=== PATIENT | female | born 1995 | race Caucasian/White ===

== ENCOUNTER 2018-02-10 19:01 | Emergency (ER) | payer OTHER ==
--- NOTE | 2018-02-10 20:10 | RAD REPORT ---
EXAM DESCRIPTION: RAD - Foot Left 3 View - 02/10/2018 7:48 pm CLINICAL HISTORY: Left foot pain COMPARISON: April 2017 FINDINGS: No fracture, dislocation or periosteal reaction. No acute or destructive bony process. No acute bone or joint process. No air or foreign body in the soft tissues. IMPRESSION: Negative left foot examination.
--- NOTE | 2018-02-10 20:15 | EDPHYS ---
Physician Documentation [facility] Name: Marycarmen Koch Age: 22 yrs Sex: Female : 1995 Arrival Date: 02/10/2018 Time: 19:05 Bed 11 Private MD: ED Physician Carlos Lyn HPI: 02/10 19:49 This 22 yrs old Female presents to ER via Ambulatory with complaints of Foot snw Injury. 19:49 The patient presents with a contusion, decreased range of motion, an injury, swelling, snw tenderness. The complaints affect the left fifth toe. Context: The problem was sustained at home, resulted from a crush injury, S.O. stepped on her toe. Onset: The symptoms/episode began/occurred suddenly, this morning. Associated signs and symptoms: The patient has no apparent associated signs or symptoms. Severity of symptoms: At their worst the symptoms were very mild. The patient has not experienced similar symptoms in the past. 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 - Social history:: Smoking status: Patient/guardian denies using tobacco. ROS: 19:48 Constitutional: Negative for fever, chills, and weight loss, Eyes: Negative for injury, snw pain, redness, and discharge, ENT: Negative for injury, pain, and discharge, Neck: Negative for injury, pain, and swelling, Cardiovascular: Negative for chest pain, palpitations, and edema, Respiratory: Negative for shortness of breath, cough, wheezing, and pleuritic chest pain, Abdomen/GI: Negative for abdominal pain, nausea, vomiting, diarrhea, and constipation, Back: Negative for injury and pain, : Negative for injury, bleeding, discharge, and swelling, Skin: Negative for injury, rash, and discoloration, Neuro: Negative for headache, weakness, numbness, tingling, and seizure, Psych: Negative for depression, anxiety, suicide ideation, homicidal ideation, and hallucinations. 19:48 MS/extremity: Positive for ecchymosis, swelling, tenderness, of the left fifth toe. Exam: 19:48 Constitutional: This is a well developed, well nourished patient who is awake, alert, snw and in no acute distress. Head/Face: Normocephalic, atraumatic. Eyes: Pupils equal round and reactive to light, extra-ocular motions intact. Lids and lashes normal. Conjunctiva and sclera are non-icteric and not injected. Cornea within normal limits. Periorbital areas with no swelling, redness, or edema. ENT: Nares patent. No nasal discharge, no septal abnormalities noted. Tympanic membranes are normal and external auditory canals are clear. Oropharynx with no redness, swelling, or masses, exudates, or evidence of obstruction, uvula midline. Mucous membranes moist. Neck: Trachea midline, no thyromegaly or masses palpated, and no cervical lymphadenopathy. Supple, full range of motion without nuchal rigidity, or vertebral point tenderness. No Meningismus. Chest/axilla: Normal chest wall appearance and motion. Nontender with no deformity. No lesions are appreciated. Cardiovascular: Regular rate and rhythm with a normal S1 and S2. No gallops, murmurs, or rubs. Normal PMI, no JVD. No pulse deficits. Respiratory: Lungs have equal breath sounds bilaterally, clear to auscultation and percussion. No rales, rhonchi or wheezes noted. No increased work of breathing, no retractions or nasal flaring. Abdomen/GI: Soft, non-tender, with normal bowel sounds. No distension or tympany. No guarding or rebound. No evidence of tenderness throughout. Back: No spinal tenderness. No costovertebral tenderness. Full range of motion. Skin: Warm, dry with normal turgor. Normal color with no rashes, no lesions, and no evidence of cellulitis. MS/ Extremity: Pulses equal, no cyanosis. Neurovascular intact. Full, normal range of motion. left pinkie toe with ecchymosis and mild edema, +tenderness Neuro: Awake and alert, GCS 15, oriented to person, place, time, and situation. Cranial nerves II-XII grossly intact. Motor strength 5/5 in all extremities. Sensory grossly intact. Cerebellar exam normal. Normal gait. Vital Signs: 19:07 BP 125 / 82; Pulse 85; Resp 19; Temp 97.3; Pulse Ox 100% on R/A; Weight 58.97 kg; la1 Height 5 ft. 2 in. (157.48 cm); 19:07 Body Mass Index 23.78 (58.97 kg, 157.48 cm) la1 MDM: 19:23 Patient medically screened. snw 02/11 00:39 Data reviewed: vital signs, nurses notes. Data interpreted: Pulse oximetry: on room air snw is 100 %. Interpretation: normal. Counseling: I had a detailed discussion with the patient and/or guardian regarding: the historical points, exam findings, and any diagnostic results supporting the discharge/admit diagnosis, radiology results, the need for outpatient follow up, to return to the emergency department if symptoms worsen or persist or if there are any questions or concerns that arise at home. Special discussion: Based on the history and exam findings, there is no indication for further emergent testing or inpatient evaluation. I discussed with the patient/guardian the need to see the primary care provider for further evaluation of the symptoms. 02/10 19:10 Order name: Foot Left 3 View XRAY; Complete Time: 20:11 snw 02/10 20:15 Order name: Mis. Order: kristen-tape 4th-5th digit,; Complete Time: 20:20 snw 02/10 20:15 Order name: Post-op shoe; Complete Time: 20:20 snw Administered Medications: No medications were administered Disposition: 02/10 21:17 Co-signature as Attending Physician, Carlos Lyn MD. rn Disposition: 02/10/18 20:15 Discharged to Home. Impression: Contusion of left foot. - Condition is Stable. - Discharge Instructions: Contusion, Cast or Splint Care. - Prescriptions for Motrin IB 200 mg Oral Tablet - take 1 tablet by ORAL route every 6 hours As needed as needed with food; 40 tablet. - Medication Reconciliation Form, Thank You Letter, Antibiotic Education, Prescription Opioid Use form. - Follow up: Private Physician; When: 1 - 2 days; Reason: Recheck today's complaints, Continuance of care, Re-evaluation by your physician. Follow up: Emergency Department; When: As needed; Reason: Worsening of condition. Signatures: Dispatcher [employer] EDMS Carolyn Granger, REGLA-C FISH FILLETER-Csnw Carlos Lyn MD MD rn Attema, Lee, RN RN la1
--- NOTE | 2018-02-10 20:15 | ER ---
Nurse's Notes [facility] Name: Marycarmen Koch Age: 22 yrs Sex: Female : 1995 Arrival Date: 02/10/2018 Time: 19:05 Bed 11 Private MD: Diagnosis: Contusion of left foot Presentation: 02/10 19:06 Presenting complaint: Patient states: My fiance stepped on me left pinky toe and I la1 think I broke it. Transition of care: patient was not received from another setting of care. Onset of symptoms was February 10, 2018. Initial Sepsis Screen: Does the patient meet any 2 criteria? No. Patient's initial sepsis screen is negative. Does the patient have a suspected source of infection? No. Patient's initial sepsis screen is negative. Care prior to arrival: None. 19:06 Method Of Arrival: Ambulatory la1 19:06 Acuity: ESDRAS 4 la1 Triage Assessment: 19:11 General: Appears in no apparent distress. Behavior is calm, cooperative. Injury la1 Description: Crush injury sustained to Left fifth toenail and left fifth toe. 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 - Social history:: Smoking status: Patient/guardian denies using tobacco. Screenin:10 Abuse screen: Denies threats or abuse. Nutritional screening: No deficits noted. la1 Tuberculosis screening: No symptoms or risk factors identified. Fall Risk None identified. Assessment: 19:10 General: Appears in no apparent distress. Behavior is calm, cooperative. Pain: la1 Complains of pain in left fifth toe and Left fifth toenail. Neuro: Level of Consciousness is awake, alert, obeys commands, Oriented to person, place, time, situation. Cardiovascular: Patient's skin is warm and dry. Musculoskeletal: Circulation, motion, and sensation intact. Capillary refill < 3 seconds, is brisk, in bilateral toes. Vital Signs: 19:07 BP 125 / 82; Pulse 85; Resp 19; Temp 97.3; Pulse Ox 100% on R/A; Weight 58.97 kg; la1 Height 5 ft. 2 in. (157.48 cm); 19:07 Body Mass Index 23.78 (58.97 kg, 157.48 cm) la1 ED Course: 19:05 Patient arrived in ED. mr 19:07 Triage completed. la1 19:08 Arm band placed on left wrist. la1 19:10 Jean Resendiz, RN is Primary Nurse. la1 19:10 Carolyn Granger FNP-C is PHCP. snw 19:10 Carlos Lyn MD is Attending Physician. snw 19:10 Call light in reach. la1 19:10 No provider procedures requiring assistance completed. Patient did not have IV access la1 during this emergency room visit. 19:46 X-ray completed. Portable x-ray completed in exam room. Patient tolerated procedure kp1 well. 19:47 Foot Left 3 View XRAY In Process Unspecified. EDMS Administered Medications: No medications were administered Outcome: 20:15 Discharge ordered by . snw 20:20 Discharged to home ambulatory. la1 20:20 Condition: stable 20:20 Discharge instructions given to patient, Instructed on discharge instructions, follow up and referral plans. Demonstrated understanding of instructions, follow-up care, medications, Prescriptions given X 1. 20:20 Patient left the ED. la1 Signatures: Dispatcher [employer] EDMS Carolyn Granger FNP-C SORTING COWS WORKER-Sigrid Mcmillan mr Jean Resendiz RN RN la1 NicholsZakiya kp1
[2018-02-10 20:36] VITALS: BP 125/82; TEMP 97.3; O2SAT 100
== END 2018-02-10 20:20 | disposition home or self-care (01) ==
LOC: ER 19:01
DX: S90.32XA Contusion of left foot, initial encounter (principal); X58.XXXA Exposure to other specified factors, initial encounter; Y93.9 Activity, unspecified; Y92.009 Unspecified place in unspecified non-institutional (private) residence as the place of occurrence of the external cause
CPT/HCPCS: 99283

== ENCOUNTER 2018-02-11 12:08 | Emergency (ER) | payer OTHER ==
--- NOTE | 2018-02-11 13:39 | EDPHYS ---
Physician Documentation [facility] Name: Marycarmen Koch Age: 22 yrs Sex: Female : 1995 Arrival Date: 02/11/2018 Time: 12:09 Bed 27 Private MD: ED Physician Gregg Altman HPI: 02/11 13:33 This 22 yrs old Female presents to ER via Ambulatory with complaints of Seen jr8 Yesterday, Needs boot for L Foot. 13:33 The complaints affect the left foot. Onset: The symptoms/episode began/occurred jr8 acutely, yesterday. The patient has not experienced similar symptoms in the past. The patient has been recently seen by a physician:. Patient seen yesterday for left foot pain/contusion and possible fracture. Was discharged to f/u. Unable to ambulate on foot with regular shoe. Requesting boot so she can work. 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 - Social history:: Smoking status: Patient/guardian denies using tobacco. ROS: 13:33 Eyes: Negative for injury, pain, redness, and discharge, ENT: Negative for injury, jr8 pain, and discharge, Neck: Negative for injury, pain, and swelling, Cardiovascular: Negative for chest pain, palpitations, and edema, Respiratory: Negative for shortness of breath, cough, wheezing, and pleuritic chest pain, Abdomen/GI: Negative for abdominal pain, nausea, vomiting, diarrhea, and constipation, Back: Negative for injury and pain, Skin: Negative for injury, rash, and discoloration, Neuro: Negative for headache, weakness, numbness, tingling, and seizure. 13:33 MS/extremity: Positive for contusion, ecchymosis, pain, tenderness, of the left foot. Exam: 13:33 Cardiovascular: Regular rate and rhythm with a normal S1 and S2. No gallops, murmurs, jr8 or rubs. Normal PMI, no JVD. No pulse deficits. Respiratory: Lungs have equal breath sounds bilaterally, clear to auscultation and percussion. No rales, rhonchi or wheezes noted. No increased work of breathing, no retractions or nasal flaring. Skin: Warm, dry with normal turgor. Normal color with no rashes, no lesions, and no evidence of cellulitis. Neuro: Awake and alert, GCS 15, oriented to person, place, time, and situation. Cranial nerves II-XII grossly intact. Motor strength 5/5 in all extremities. Sensory grossly intact. Cerebellar exam normal. Normal gait. 13:33 Musculoskeletal/extremity: Extremities: grossly normal except: noted in the left foot: Pain, tenderness, contusion noted to right fifth toe , ROM: intact in all extremities, limited active range of motion due to pain, limited passive range of motion due to pain, Circulation is intact in all extremities. Sensation intact. Weight bearing: can bear weight with assistance only. Vital Signs: 12:28 BP 97 / 69; Pulse 72; Resp 15; Temp 98; Pulse Ox 98% on R/A; Weight 58.97 kg (R); hb Height 5 ft. 2 in. (157.48 cm); Pain 7/10; 12:28 Body Mass Index 23.78 (58.97 kg, 157.48 cm) hb Procedures: 13:33 Splinting: Splint applied to left foot using Ortho 3D boot, applied by nurse. Examined jr8 by me, post splint application: neurovascular intact, 2+ distal pulses palpable, brisk capillary refill noted, Patient tolerated well. MDM: 13:01 Patient medically screened. jr8 13:33 Data reviewed: vital signs, nurses notes, and as a result, I will discharge patient. jr8 Data interpreted: Pulse oximetry: on room air is 98 %. Interpretation: normal. Counseling: I had a detailed discussion with the patient and/or guardian regarding: the historical points, exam findings, and any diagnostic results supporting the discharge/admit diagnosis, the need for outpatient follow up, a dicer operator, to return to the emergency department if symptoms worsen or persist or if there are any questions or concerns that arise at home. Administered Medications: No medications were administered Disposition: 02/11/18 13:39 Discharged to Home. Impression: Contusion of left foot. - Condition is Stable. - Discharge Instructions: Foot Contusion. - Medication Reconciliation Form, Thank You Letter, Antibiotic Education, Prescription Opioid Use form. - Follow up: Private Physician; When: 2 - 3 days; Reason: Recheck today's complaints, Continuance of care, Re-evaluation by your physician. - Problem is new. - Symptoms have improved. Addendum: 02/14/2018 21:09 Co-signature as Attending Physician, Gregg Altman MD. g s Signatures: Samuel Tate PA PA jr8 Ximena Emanuel RN RN Gregg Altman MD MD Elis Gonsales RN RN tl3 Corrections: (The following items were deleted from the chart) 02/11 13:47 13:39 02/11/2018 13:39 Discharged to Home. Impression: Contusion of left foot. tl3 Condition is Stable. Forms are Medication Reconciliation Form, Thank You Letter, Antibiotic Education, Prescription Opioid Use. Follow up: Private Physician; When: 2 - 3 days; Reason: Recheck today's complaints, Continuance of care, Re-evaluation by your physician. Problem is new. Symptoms have improved. jr8
--- NOTE | 2018-02-11 13:39 | ER ---
Nurse's Notes [facility] Name: Marycarmen Koch Age: 22 yrs Sex: Female : 1995 Arrival Date: 02/11/2018 Time: 12:09 Bed 27 Private MD: Diagnosis: Contusion of left foot Presentation: 02/11 12:24 Presenting complaint: Patient states: Seen yesterday for left foot injury, was unable hb to put on shoe due to pain today due to the pain, is concerned she needs walking boot. Transition of care: patient was not received from another setting of care. Onset of symptoms was February 10, 2018. Initial Sepsis Screen: Does the patient meet any 2 criteria? No. Patient's initial sepsis screen is negative. Does the patient have a suspected source of infection? No. Patient's initial sepsis screen is negative. Care prior to arrival: None. 12:24 Method Of Arrival: Ambulatory 12:24 Acuity: ESDRAS 4 hb SHIFT BOSS: 12:28 LMP 02/10/2018 hb Historical: - Allergies: 12:29 No Known Allergies; hb - Home Meds: 12:29 None [Active]; hb - PMHx: 12:29 None; hb - PSHx: 12:29 Tubal ligation; hb - Immunization history:: Adult Immunizations up to date. - Social history:: Smoking status: Patient/guardian denies using tobacco. Screenin:13 Abuse screen: Denies threats or abuse. Nutritional screening: No deficits noted. tl3 Tuberculosis screening: No symptoms or risk factors identified. Fall Risk None identified. Assessment: 13:13 General: Appears in no apparent distress. comfortable, slender, well groomed, well tl3 developed, well nourished, Behavior is calm, cooperative, appropriate for age. Pain: Complains of pain in left foot. Neuro: No deficits noted. Level of Consciousness is awake, alert, obeys commands, Oriented to person, place, time, situation, Appropriate for age. Cardiovascular: No deficits noted. Heart tones S1 S2 present Capillary refill in bilateral toes. Respiratory: No deficits noted. Airway is patent Trachea midline Respiratory effort is even, unlabored, Respiratory pattern is regular, symmetrical, Breath sounds are clear bilaterally. GI: No signs and/or symptoms were reported involving the gastrointestinal system. : No signs and/or symptoms were reported regarding the genitourinary system. EENT: No signs and/or symptoms were reported regarding the EENT system. Derm: No signs and/or symptoms reported regarding the dermatologic system. Musculoskeletal: Reports pt was seen yesterday and dx with a contusion, work will not let her return without a hard shoe and she says it is too painful to even put a fuzzy slipper on and would like a walking boot. Vital Signs: 12:28 BP 97 / 69; Pulse 72; Resp 15; Temp 98; Pulse Ox 98% on R/A; Weight 58.97 kg (R); hb Height 5 ft. 2 in. (157.48 cm); Pain 7/10; 12:28 Body Mass Index 23.78 (58.97 kg, 157.48 cm) hb ED Course: 12:09 Patient arrived in ED. as 12:28 Triage completed. hb 12:28 Arm band placed on left wrist. 13:01 [facility]. 8 13:01 Gregg Altman MD is Attending Physician. 8 13:13 Elis Gonsales, RN is Primary Nurse. tl3 13:13 No apparent distress. Resting quietly. Awaiting ED provider evaluation. tl3 13:13 Patient has correct armband on for positive identification. Bed in low position. Call tl3 light in reach. 13:13 No provider procedures requiring assistance completed. Patient did not have IV access tl3 during this emergency room visit. 13:45 walking boot. tl3 Administered Medications: No medications were administered Outcome: 13:39 Discharge ordered by . 8 13:45 Discharged to home ambulatory. tl3 13:45 Condition: good 13:45 Discharge instructions given to patient, Instructed on discharge instructions, Demonstrated understanding of instructions, follow-up care. 13:47 Patient left the ED. tl3 Signatures: Lavonne Gan as Samuel Tate PA PA 8 Ximena Emanuel RN RN Elis Gonsales RN RN tl3
[2018-02-11 13:51] VITALS: BP 97/69; TEMP 98; O2SAT 98
== END 2018-02-11 13:47 | disposition home or self-care (01) ==
LOC: ER 12:08
DX: S90.32XA Contusion of left foot, initial encounter (principal); X58.XXXA Exposure to other specified factors, initial encounter
CPT/HCPCS: 99283

== ENCOUNTER 2019-11-27 21:22 | Emergency (ER) | payer OTHER ==
[2019-11-27 22:24] LABS: Absolute Lymphocytes (CBC) 3.2 K/uL (0.7-4.9); Basophils % 0.8 % (0-1.3); Hematocrit 38.5 % (36.0-45.0); Lymphocytes % 33.1 % (15.3-44.8); MPV 7.7 fL (7.6-11.3); RBC Red Blood Cell Count 4.11 M/uL (3.86-4.86)
[2019-11-27 22:52] LABS: BUN Blood Urea Nitrogen 12 mg/dL (7-18); Bicarbonate 27 mmol/L (21-32); Glucose Level 85 mg/dL (74-106); Potassium 3.7 mmol/L (3.5-5.1); Sodium Level 140 mmol/L (136-145)
[2019-11-27 22:54] LABS: Troponin (Emerg Dept Use Only) < 0.02 ng/mL (0.0-0.045)
--- NOTE | 2019-11-27 23:19 | ER ---
Nurse's Notes [facility] Name: Marycarmen Koch Age: 23 yrs Sex: Female : 1995 Arrival Date: 11/27/2019 Time: 21:25 Bed 27 Private MD: Diagnosis: Chest pain, unspecified Presentation: 11/27 21:34 Presenting complaint: Patient states: Chest pain started at 1700 today, radiating to ca1 the L jaw, arm and shoulder. Worst with coughing. Reports cough and congestion for 2-3 days. Denies fever. Transition of care: patient was not received from another setting of care. Onset of symptoms was November 27, 2019. Risk Assessment: Do you want to hurt yourself or someone else? Patient reports no desire to harm self or others. Initial Sepsis Screen: Does the patient meet any 2 criteria? No. Patient's initial sepsis screen is negative. Does the patient have a suspected source of infection? No. Patient's initial sepsis screen is negative. Care prior to arrival: None. 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 - Coronavirus screen:: The patient has NOT traveled to [place] in the past 14 days. The patient has NOT had contact with known/suspected case of Coronavirus?. - Social history:: Smoking status: Patient denies any tobacco usage or history of. - Family history:: not pertinent. - Ebola Screening: : Patient negative for fever greater than or equal to 101.5 degrees Fahrenheit, and additional compatible Ebola Virus Disease symptoms Patient denies exposure to infectious person Patient denies travel to an Ebola-affected area in the 21 days before illness onset No symptoms or risks identified at this time. - Hospitalizations: : No recent hospitalization is reported. Screenin:42 Abuse screen: Denies threats or abuse. Nutritional screening: No deficits noted. fu Tuberculosis screening: No symptoms or risk factors identified. Fall Risk None identified. Assessment: 21:39 General: Appears in no apparent distress. Behavior is calm, cooperative, appropriate fu for age, Denies fever, feeling ill, fatigue, chills. Pain: Complains of pain in chest pain Pain radiates to left jaw Pain currently is 6 out of 10 on a pain scale. Quality of pain is described as sharp, Pain began 1700 today. Neuro: Level of Consciousness is awake, alert, obeys commands, Oriented to person, place, time, situation, Orthodontic Treatment Coordinator are equal bilaterally Moves all extremities. Cardiovascular: Reports chest pain, shortness of breath, since 1700 this afternoon Denies diaphoresis, lightheadedness, nausea, palpitations, Heart tones S1 S2 Capillary refill < 3 seconds. Respiratory: Reports shortness of breath since 2-3 days ago cough that is Airway is patent Breath sounds are clear bilaterally. EENT: No signs and/or symptoms were reported regarding the EENT system. Derm: No signs and/or symptoms reported regarding the dermatologic system. 23:05 Reassessment: No changes from previously documented assessment. Patient and/or family fu updated on plan of care and expected duration. Pain level reassessed. Patient is alert, oriented x 3, equal unlabored respirations, skin warm/dry/pink. patient resting in bed, no complaints at this time. 23:15 Reassessment: Patient and/or family updated on plan of care and expected duration. Pain fu level reassessed. Patient is alert, oriented x 3, equal unlabored respirations, skin warm/dry/[facility]. Vital Signs: 21:36 BP 126 / 93; Pulse 109; Resp 20; Temp 98.5(O); Pulse Ox 100% on R/A; Weight 75.75 kg ca1 (R); Height 5 ft. 2 in. (157.48 cm) (R); Pain 6/10; 22:04 BP 106 / 72; Pulse 93; Resp 17; Pulse Ox 100% on R/A; Pain 0/10; fu 23:15 BP 117 / 79; Pulse 108; Resp 22; Temp 98.2; Pulse Ox 100% on R/A; Pain 0/10; fu 21:36 Body Mass Index 30.54 (75.75 kg, 157.48 cm) ca1 ED Course: 21:25 Patient arrived in ED. ag3 21:29 Cale Guzman, RN is Primary Nurse. fu 21:35 Triage completed. ca1 21:36 Arm band placed on right wrist. ca1 21:38 Carlos Lyn MD is Attending Physician. rn 21:40 environmental monitoring technician on. Pulse ox on. NIBP on. fu 21:42 Patient maintains SpO2 saturation greater than 95% on room air. fu 22:00 Inserted saline lock: 22 gauge in left antecubital area, using aseptic technique. Blood fu collected. 22:09 Troponin (emerg Dept Use Only) Sent. fu 22:09 Basic Metabolic Panel Sent. fu 22:09 CBC with Diff Sent. fu 23:33 Patient has correct armband on for positive identification. Placed in gown. Bed in low fu position. Call light in reach. 23:33 No provider procedures requiring assistance completed. IV discontinued, bleeding fu controlled, Pressure dressing applied. Administered Medications: No medications were administered Point of Care Testing: Urine : 22:54 hCG Reading: Negative; Control Reading: Positive; fu Outcome: 23:18 Discharge ordered by . rn 23:33 Discharged to home ambulatory. fu 23:33 Condition: stable 23:33 Discharge instructions given to patient, Instructed on discharge instructions, follow up and referral plans. Demonstrated understanding of instructions, follow-up care. 23:40 Patient left the ED. fu Signatures: Carlos Lyn MD MD rn Umadhay, Felix, RN RN Joana Yanez ag3 Lesli Fry RN RN ca1 Corrections: (The following items were deleted from the chart) 21:41 21:36 EKG completed in triage. Results shown to MD. ca1 ca1
--- NOTE | 2019-11-27 23:20 | EDPHYS ---
Physician Documentation [facility] Name: Marycarmen Koch Age: 23 yrs Sex: Female : 1995 Arrival Date: 11/27/2019 Time: 21:25 Bed 27 Private MD: ED Physician Carlos Lyn HPI: 11/27 22:00 This 23 yrs old Female presents to ER via Ambulatory with complaints of Chest rn Pain. 22:00 The patient or guardian reports chest pain that is located primarily in the anterior rn chest wall. The pain radiates to the left shoulder, The chest pain is described as sharp, stabbing. Duration: The patient or guardian reports multiple episodes, that are intermittent. Modifying factors: The symptoms are alleviated by nothing. the symptoms are aggravated by cough, deep breath, palpation of area. Severity of pain: At its worst the pain was mild in the emergency department the pain is unchanged. The patient has not experienced similar symptoms in the past. Reports cough for 3 days, non-productive, no hemoptysis, today began with sharp stabbing left sided chest pain worse with palpation and deep breath. No trauma, no hx of dvt/PE, no recent surgery or immobilization. No famhx of early cardiac problems. . 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 - Coronavirus screen:: The patient has NOT traveled to [place] in the past 14 days. The patient has NOT had contact with known/suspected case of Coronavirus?. - Social history:: Smoking status: Patient denies any tobacco usage or history of. - Family history:: not pertinent. - Ebola Screening: : Patient negative for fever greater than or equal to 101.5 degrees Fahrenheit, and additional compatible Ebola Virus Disease symptoms Patient denies exposure to infectious person Patient denies travel to an Ebola-affected area in the 21 days before illness onset No symptoms or risks identified at this time. - Hospitalizations: : No recent hospitalization is reported. ROS: 22:00 Constitutional: Negative for fever, chills, and weight loss, Eyes: Negative for injury, rn pain, redness, and discharge, Neck: Negative for injury, pain, and swelling, Cardiovascular: Negative for palpitations, and edema, Respiratory: Negative for wheezing Abdomen/GI: Negative for abdominal pain, nausea, vomiting, diarrhea, and constipation, MS/Extremity: Negative for injury and deformity, Skin: Negative for injury, rash, and discoloration, Neuro: Negative for headache, weakness, numbness, tingling, and seizure. Exam: 22:00 Constitutional: This is a well developed, well nourished patient who is awake, alert, rn and in no acute distress. Head/Face: Normocephalic, atraumatic. ENT: MMM Chest/axilla: + left anterior chest wall reproducible tenderness Cardiovascular: Regular rate and rhythm. No pulse deficits. Respiratory: Lungs have equal breath sounds bilaterally, clear to auscultation. No increased work of breathing, no retractions or nasal flaring. Abdomen/GI: soft, non-tender MS/ Extremity: Pulses equal, no cyanosis. Neurovascular intact. Full, normal range of motion. Equal circumference. Neuro: Awake and alert, GCS 15 22:30 ECG was reviewed by the Attending Physician. rn Vital Signs: 21:36 BP 126 / 93; Pulse 109; Resp 20; Temp 98.5(O); Pulse Ox 100% on R/A; Weight 75.75 kg ca1 (R); Height 5 ft. 2 in. (157.48 cm) (R); Pain 6/10; 22:04 BP 106 / 72; Pulse 93; Resp 17; Pulse Ox 100% on R/A; Pain 0/10; fu 23:15 BP 117 / 79; Pulse 108; Resp 22; Temp 98.2; Pulse Ox 100% on R/A; Pain 0/10; fu 21:36 Body Mass Index 30.54 (75.75 kg, 157.48 cm) ca1 MDM: 21:38 Patient medically screened. rn 23:16 Differential diagnosis: acute pericarditis, chest wall pain, costochondritis, pleurisy, rn pneumothorax, bronchitis. Data reviewed: vital signs, nurses notes, lab test result(s), EKG, radiologic studies, plain films, and as a result, I will discharge patient. Counseling: I had a detailed discussion with the patient and/or guardian regarding: the historical points, exam findings, and any diagnostic results supporting the discharge/admit diagnosis, lab results, radiology results, the need for outpatient follow up, to return to the emergency department if symptoms worsen or persist or if there are any questions or concerns that arise at home. Response to treatment: the patient's symptoms have mildly improved after treatment, and as a result, I will discharge patient. Special discussion: Based on the patient's history, exam, and Dx evaluation, there is no indication for emergent intervention or inpatient Tx. It is understood by the patient/guardian that if the Sx's persist or worsen they need to return immediately for re-evaluation. I discussed with the patient/guardian in detail that at this point there is no indication for admission to the hospital. It is understood, however, that if the symptoms persist or worsen the patient needs to return immediately for re-evaluation. ED course: Trop and ecg normal, neg cxr, most likely pleurisy from cough and chest wall strain also from cough. Reassured patient, will dc home.. 11/27 21:45 Order name: CBC with Diff rn 11/27 21:45 Order name: Basic Metabolic Panel 11/27 21:45 Order name: Troponin (emerg Dept Use Only) rn 11/27 22:42 Order name: CBC with Automated Diff; Complete Time: 23:07 EDVA 11/27 22:53 Order name: Basic Metabolic Panel; Complete Time: 23:07 EDVA 11/27 22:55 Order name: Troponin (Emerg Dept Use Only); Complete Time: 23:07 EDVA 11/27 21:37 Order name: EKG; Complete Time: 21:37 ca1 11/27 21:37 Order name: EKG - Nurse/Tech; Complete Time: 21:37 ca1 11/27 21:45 Order name: XRAY Chest (1 view) rn 11/27 21:45 Order name: Urine Test (obtain specimen); Complete Time: 22:47 rn 11/27 21:45 Order name: IV Start; Complete Time: 22:09 rn EC:30 Rate is 89 beats/min. Rhythm is regular. QRS [place] is Normal. [place] interval is normal. QRS rn interval is normal. QT interval is normal. No Q waves. T waves are Normal. No ST changes noted. Clinical impression: Normal ECG. Interpreted by me. Reviewed by me. Administered Medications: No medications were administered Point of Care Testing: Urine : 22:54 hCG Reading: Negative; Control Reading: Positive; fu Disposition: 11/27/19 23:18 Discharged to Home. Impression: Chest pain, unspecified. - Condition is Stable. - Discharge Instructions: Nonspecific Chest Pain, Pleurisy. - Medication Reconciliation Form, Thank You Letter, Antibiotic Education, Prescription Opioid Use form. - Follow up: Private Physician; When: As needed; Reason: Recheck today's complaints, Re-evaluation by your physician. - Problem is new. - Symptoms have improved. Signatures: Dispatcher [employer] EDMS Carlos Lyn MD MD rn Umadhay, Felix, RN RN fu Acob, Cheryl, RN RN ca1 Corrections: (The following items were deleted from the chart) 23:40 23:18 11/27/2019 23:18 Discharged to Home. Impression: Chest pain, unspecified. fu Condition is Stable. Forms are Medication Reconciliation Form, Thank You Letter, Antibiotic Education, Prescription Opioid Use. Follow up: Private Physician; When: As needed; Reason: Recheck today's complaints, Re-evaluation by your physician. Problem is new. Symptoms have improved. rn
--- NOTE | 2019-11-28 07:52 | RAD REPORT ---
EXAM DESCRIPTION: RAD - Chest Single View - 11/27/2019 10:00 pm CLINICAL HISTORY: Chest pain;Cough;Dyspnea COMPARISON: No comparisons TECHNIQUE: AP portable chest image was obtained 11/27/2019 10:00 pm . FINDINGS: Lungs are clear. Heart and vasculature are normal. No measurable pleural effusion and no p neumothorax. No acute bony abnormality seen. No acute aortic findings suspected. IMPRESSION: No acute cardiopulmonary process.
--- NOTE | 2019-11-28 13:36 | EKG ---
Test Date: 2019-11-27 Test Time: 21:53:41 Color Maker Formulator: BETTY MEASUREMENT RESULTS: Intervals: Rate: 89 MT: 140 QRSD: 72 QT: 354 QTc: 430 [place]: P: 68 MT: 140 QRS: 68 T: 48 INTERPRETIVE STATEMENTS: Normal sinus rhythm Normal ECG No previous ECG available for comparison Electronically Signed On 11-28-19 13:35:13 BASE LOADER by Twin Correa
[2019-11-28 16:20] VITALS: O2SAT 100
[2019-11-28 16:23] VITALS: BP 117/79; TEMP 98.2
== END 2019-11-27 23:40 | disposition home or self-care (01) ==
LOC: ER 21:22
DX: R07.9 Chest pain, unspecified (principal)
CPT/HCPCS: 36415; 71045; 80048; 84484; 85025; 93005; 99285

== ENCOUNTER 2021-07-07 20:08 | Emergency (ER) | payer OTHER, SELFPAY ==
[2021-07-07 21:42] LABS: SARS-COV-2 RT PCR NEGATIVE (NEGATIVE)
--- NOTE | 2021-07-07 22:15 | ER ---
Nurse's Notes [facility] Name: Marycarmen Koch Age: 25 yrs Sex: Female : 1995 Arrival Date: 07/07/2021 Time: 20:09 Bed DX2 Private MD: Diagnosis: Acute upper respiratory infection, unspecified Presentation: 07/07 20:44 Chief complaint: Patient states: Sore throat, cough, fever, vomiting, Left ear pain x 3 kg days. Coronavirus screen: Vaccine status: Patient reports being unvaccinated. cough unrelated to allergies, fever, headache, sore throat, Client presents with at least one sign or symptom that may indicate coronavirus-19. Standard/surgical mask placed on the client. Provider contacted for isolation considerations. Ebola Screen: Patient negative for fever greater than or equal to 101.5 degrees Fahrenheit, and additional compatible Ebola Virus Disease symptoms Patient denies exposure to infectious person. Patient denies travel to an Ebola-affected area in the 21 days before illness onset. Initial Sepsis Screen: Does the patient meet any 2 criteria? No. Patient's initial sepsis screen is negative. Does the patient have a suspected source of infection? No. Patient's initial sepsis screen is negative. Risk Assessment: Do you want to hurt yourself or someone else? Patient reports no desire to harm self or others. 20:44 Method Of Arrival: Ambulatory kg 20:44 Onset of symptoms was July 04, 2021. kg 20:44 Acuity: ESDRAS 4 kg Triage Assessment: 20:46 General: Appears in no apparent distress. Behavior is calm, cooperative, appropriate kg for age, quiet. Pain: Complains of pain in Throat. EENT: Reports difficulty swallowing since 07/04 pain Left ear pain. 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 - Immunization history:: Adult Immunizations not up to date, Client reports having NOT received the Covid vaccine. Screenin:47 Abuse screen: Denies threats or abuse. Denies injuries from another. Nutritional kg screening: No deficits noted. Tuberculosis screening: No symptoms or risk factors identified. Fall Risk None identified. Assessment: 21:37 General: Appears in no apparent distress. Pain: Denies pain. Neuro: No deficits noted. ch4 Cardiovascular: No deficits noted. Respiratory: Airway is patent Respiratory effort is unlabored, Breath sounds are clear. GI: No deficits noted. EENT: Throat. Vital Signs: 20:44 BP 121 / 96; Pulse 97; Resp 20; Temp 97.2(TE); Pulse Ox 100% ; Weight 68.04 kg; Height kg 5 ft. 2 in. (157.48 cm) (R); Pain 6/10; 20:44 Body Mass Index 27.44 (68.04 kg, 157.48 cm) kg ED Course: 20:09 Patient arrived in ED. bp1 20:46 Triage completed. kg 21:30 Flu Sent. ch4 21:30 Strep Sent. ch4 21:33 Melchor Murray PA is PHCP. cp 21:33 Colby Davidson MD is Attending Physician. cp 21:37 Arielle Cheema, RN is Primary Nurse. ch4 21:37 Patient has correct armband on for positive identification. Placed in gown. Bed in low ch4 position. Call light in reach. 21:51 COVID-19 : Document "Date of Symptom Onset" if Symptomatic. Sent. kc4 Administered Medications: No medications were administered Outcome: 22:15 Discharge ordered by . cp 22:29 Patient left the ED. ch4 Signatures: Melchor Murray PA PA cp Marley Kulkarni [facility] Emma Patino RN RN kg Arielle Cheema, KARTHIKEYAN RN [facility] Lorenza Reeves kc4
--- NOTE | 2021-07-07 22:15 | EDPHYS ---
Physician Documentation [facility] Name: Marycarmen Koch Age: 25 yrs Sex: Female : 1995 Arrival Date: 07/07/2021 Time: 20:09 Bed DX2 Private MD: ED Physician Colby Davidson HPI: 07/07 21:30 This 25 yrs old Female presents to ER via Ambulatory with complaints of Sore cp Throat, Fever, Cough. 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 - Immunization history:: Adult Immunizations not up to date, Client reports having NOT received the Covid vaccine. ROS: 21:35 Constitutional: Negative for body aches, chills, fever, poor PO intake. cp 21:35 Eyes: Negative for injury, pain, redness, and discharge. cp 21:35 ENT: Positive for ear pain, sore throat, Negative for drainage from ear(s), difficulty swallowing, difficulty handling secretions. 21:35 Cardiovascular: Negative for chest pain. 21:35 Respiratory: Positive for cough, Negative for shortness of breath, wheezing. 21:35 Abdomen/GI: Negative for abdominal pain, diarrhea, constipation, active vomiting. 21:35 Neuro: Negative for altered mental status, headache, weakness. 21:35 All other systems are negative. Exam: 21:40 Constitutional: The patient appears in no acute distress, alert, awake, comfortable, cp non-toxic, well developed, well nourished. 21:40 Head/Face: Normocephalic, atraumatic. cp 21:40 Eyes: Periorbital structures: appear normal, Conjunctiva: normal, no exudate, no cp injection, Sclera: no appreciated abnormality, Lids and lashes: appear normal, bilaterally. 21:40 ENT: External ear(s): are unremarkable, Ear canal(s): are normal, clear, TM's: bulging, cp is not appreciated, bilaterally, dullness, bilaterally, erythema, is not appreciated, bilaterally, Nose: is normal, Mouth: Lips: moist, Oral mucosa: pink and intact, moist, Posterior pharynx: Airway: no evidence of obstruction, patent, Tonsils: no enlargement, no erythema, no exudate, Uvula: midline, erythema, is not appreciated, exudate, is not appreciated. 21:40 Neck: ROM/movement: is normal, is supple, without pain, no range of motions limitations, no meningismus, Lymph nodes: no appreciated lymphadenopathy. 21:40 Chest/axilla: Inspection: normal, Palpation: is normal, no crepitus, no tenderness. 21:40 Cardiovascular: Rate: normal, Rhythm: regular. 21:40 Respiratory: the patient does not display signs of respiratory distress, Respirations: normal, no use of accessory muscles, no retractions, labored breathing, is not present, Breath sounds: are clear throughout, no decreased breath sounds. 21:40 Abdomen/GI: Exam negative for discomfort, distension, guarding, Inspection: abdomen appears normal. Vital Signs: 20:44 BP 121 / 96; Pulse 97; Resp 20; Temp 97.2(TE); Pulse Ox 100% ; Weight 68.04 kg; Height kg 5 ft. 2 in. (157.48 cm) (R); Pain 6/10; 20:44 Body Mass Index 27.44 (68.04 kg, 157.48 cm) kg MDM: 21:38 Patient medically screened. cp 22:00 Differential diagnosis: bronchitis, flu, URI. cp 22:15 Data reviewed: vital signs, nurses notes, lab test result(s). cp 22:15 Counseling: I had a detailed discussion with the patient and/or guardian regarding: the cp historical points, exam findings, and any diagnostic results supporting the discharge/admit diagnosis, lab results, to return to the emergency department if symptoms worsen or persist or if there are any questions or concerns that arise at home. 07/07 20:43 Order name: Flu 07/07 20:43 Order name: Strep 07/07 20:44 Order name: COVID-19 : Document "Date of Symptom Onset" if Symptomatic. 07/07 20:44 Order name: Group A Streptococcus Rapid Sc; Complete Time: 22:14 [facility] 07/07 21:27 Order name: Throat Culture EDMS 07/07 21:42 Order name: COVID-19/FLU A+B; Complete Time: 22:14 EDMS Administered Medications: No medications were administered Disposition Summary: 07/07/21 22:15 Discharge Ordered Location: Home cp Problem: new cp Symptoms: are unchanged cp Condition: Stable cp Diagnosis - Acute upper respiratory infection, unspecified cp Followup: cp - With: Private Physician - When: 2 - 3 days - Reason: Worsening of condition Discharge Instructions: - Discharge Summary Sheet cp - Upper Respiratory Infection, Adult cp Forms: - Medication Reconciliation Form cp - Thank You Letter cp - Antibiotic Education cp - Prescription Opioid Use cp Prescriptions: - Tessalon Perles 100 mg Oral Capsule - take 2 capsule by ORAL route every 8 hours As needed; 30 capsule; Refills: 0, cp Product Selection Permitted Addendum: 07/09/2021 06:51 Co-signature as Attending Physician, Colby Davidson MD. m Signatures: Dispatcher [employer] EDMS Melchor Murray PA PA cp Colby Davidson MD MD [facility] Emma Patino RN RN kg Corrections: (The following items were deleted from the chart) 07/07 20:58 20:44 Influenza Screen (A ordered. EDMS EDMS 20:58 20:44 CORONAVIRUS ordered. EDMS EDMS
[2021-07-07 23:36] VITALS: BP 121/96; TEMP 97.2; O2SAT 100
== END 2021-07-07 22:29 | disposition home or self-care (01) ==
LOC: ER 20:08
DX: J06.9 Acute upper respiratory infection, unspecified (principal); Z20.822 Contact with and (suspected) exposure to COVID-19
CPT/HCPCS: 0240U; 87070; 87081; 99282

== ENCOUNTER 2021-08-20 12:50 | Emergency (ER) | payer SELFPAY ==
[2021-08-20 13:14] LABS: Urine Blood 3+ (Negative); Urine Glucose Negative (Negative); Urine Protein 2+ (Negative)
--- NOTE | 2021-08-20 13:18 | ER ---
Nurse's Notes [facility] Name: Marycarmen Koch Age: 25 yrs Sex: Female : 1995 Arrival Date: 08/20/2021 Time: 12:53 Bed 9 Private MD: Diagnosis: Acute cystitis Presentation: 08/20 13:12 Chief complaint: Patient states: Burning upon urination began this morning. States vg1 cramps in lower ABD. Denies NVD. Last BM was yesterday, pt states it was 'normal'. Denies vaginal discharge or blood in urine. Coronavirus screen: Vaccine status: Patient reports being unvaccinated. Client denies travel out of the [place] in the last 14 days. Ebola Screen: Patient negative for fever greater than or equal to 101.5 degrees Fahrenheit, and additional compatible Ebola Virus Disease symptoms. Initial Sepsis Screen: Does the patient meet any 2 criteria? No. Patient's initial sepsis screen is negative. Does the patient have a suspected source of infection? No. Patient's initial sepsis screen is negative. Risk Assessment: Do you want to hurt yourself or someone else?. Onset of symptoms was August 20, 2021. 13:12 Method Of Arrival: Ambulatory vg1 13:12 Acuity: ESDRAS 4 vg1 Triage Assessment: 13:14 General: Appears in no apparent distress. comfortable, Behavior is calm, cooperative. vg1 Pain: Complains of pain in pelvis and meatus and groin Pain currently is 7 out of 10 on a pain scale. Pain began this morning. : Reports burning with urination, pain urgency. 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 - Social history:: Smoking status: Patient denies any tobacco usage or history of. Patient/guardian denies using alcohol, street drugs, The patient lives with family. - Family history:: not pertinent. Screenin:12 Abuse screen: Denies threats or abuse. Denies injuries from another. Nutritional ld1 screening: No deficits noted. Tuberculosis screening: No symptoms or risk factors identified. Fall Risk None identified. Assessment: 13:12 General: Appears in no apparent distress. comfortable, Behavior is calm, cooperative, ld1 appropriate for age. Pain: Complains of pain in meatus Pain does not radiate. Pain currently is 7 out of 10 on a pain scale. Quality of pain is described as burning, Pain began 2-3 days ago. Is continuous. Neuro: Level of Consciousness is awake, alert, obeys commands, Oriented to person, place, time, situation. Cardiovascular: Capillary refill < 3 seconds Patient's skin is warm and dry. Respiratory: Airway is patent Respiratory effort is even, unlabored, Respiratory pattern is regular, symmetrical. GI: Abdomen is round non-distended. : Reports burning with urination, urgency, urinary frequency. EENT: No signs and/or symptoms were reported regarding the EENT system. Derm: No signs and/or symptoms reported regarding the dermatologic system. Musculoskeletal: No signs and/or symptoms reported regarding the musculoskeletal system. Vital Signs: 13:12 BP 119 / 80; Pulse 80; Resp 16; Temp 97.6; Pulse Ox 99% ; Weight 81.65 kg; Height 5 ft. vg1 2 in. (157.48 cm); Pain 7/10; 13:12 Body Mass Index 32.92 (81.65 kg, 157.48 cm) vg1 ED Course: 12:53 Patient arrived in ED. ds1 13:02 Fiona Beasley RN is Primary Nurse. ld1 13:05 Yunior Bass MD is Attending Physician. ma2 13:12 Patient has correct armband on for positive identification. Bed in low position. Call ld1 light in reach. Side rails up X 1. Pulse ox on. NIBP on. Door closed. Noise minimized. Warm blanket given. 13:12 No provider procedures requiring assistance completed. ld1 13:14 Triage completed. vg1 13:14 Arm band placed on. vg1 13:25 Patient did not have IV access during this emergency room visit. ld1 Administered Medications: No medications were administered Outcome: 13:18 Discharge ordered by . ma2 13:25 Discharged to home ambulatory. ld1 13:25 Condition: stable 13:25 Discharge instructions given to patient, Instructed on discharge instructions, follow up and referral plans. medication usage, Demonstrated understanding of instructions, follow-up care, medications, Prescriptions given X 2. 13:25 Patient left the ED. ld1 Signatures: Mariza Reese1 Yunior Bass MD MD ma2 Keiko Holly RN RN vg1 Fiona Beasley RN RN ld1
--- NOTE | 2021-08-20 13:18 | EDPHYS ---
Physician Documentation [facility] Name: Marycarmen Koch Age: 25 yrs Sex: Female : 1995 Arrival Date: 08/20/2021 Time: 12:53 Bed 9 Private MD: ED Physician Yunior Bass HPI: 08/20 13:16 This 25 yrs old Female presents to ER via Ambulatory with complaints of ma2 Urinary Problem. 13:16 The patient presents with urinary symptoms, dysuria. Onset: The symptoms/episode ma2 began/occurred gradually, 2 hour(s) ago. Associated signs and symptoms: Pertinent negatives: diarrhea, dysuria, fever, hematuria. Severity of symptoms: At their worst the symptoms were moderate, in the emergency department the symptoms are unchanged. The patient has experienced similar episodes in the past. 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 - Social history:: Smoking status: Patient denies any tobacco usage or history of. Patient/guardian denies using alcohol, street drugs, The patient lives with family. - Family history:: not pertinent. ROS: 13:16 Positive for urinary symptoms, Negative for urinary frequency, flank pain, bladder ma2 incontinence. 13:16 Constitutional: Negative for fever, chills, and weight loss. 13:16 All other systems are negative. Exam: 13:16 Constitutional: This is a well developed, well nourished patient who is awake, alert, ma2 and in no acute distress. Chest/axilla: Normal chest wall appearance and motion. Nontender with no deformity. No lesions are appreciated. Cardiovascular: Regular rate and rhythm with a normal S1 and S2. No gallops, murmurs, or rubs. Normal PMI, no JVD. No pulse deficits. Respiratory: Lungs have equal breath sounds bilaterally, clear to auscultation and percussion. No rales, rhonchi or wheezes noted. No increased work of breathing, no retractions or nasal flaring. Abdomen/GI: Soft, non-tender, with normal bowel sounds. No distension or tympany. No guarding or rebound. No evidence of tenderness throughout. Back: No spinal tenderness. No costovertebral tenderness. Full range of motion. Skin: Warm, dry with normal turgor. Normal color with no rashes, no lesions, and no evidence of cellulitis. MS/ Extremity: Pulses equal, no cyanosis. Neurovascular intact. Full, normal range of motion. Neuro: Awake and alert, GCS 15, oriented to person, place, time, and situation. Cranial nerves II-XII grossly intact. Motor strength 5/5 in all extremities. Sensory grossly intact. Cerebellar exam normal. Normal gait. Vital Signs: 13:12 BP 119 / 80; Pulse 80; Resp 16; Temp 97.6; Pulse Ox 99% ; Weight 81.65 kg; Height 5 ft. vg1 2 in. (157.48 cm); Pain 7/10; 13:12 Body Mass Index 32.92 (81.65 kg, 157.48 cm) vg1 MDM: 13:05 Patient medically screened. ma2 13:16 Differential diagnosis: cervicitis, menorrhea, urinary tract infection, vaginosis. Data ma2 reviewed: vital signs, nurses notes. Counseling: I had a detailed discussion with the patient and/or guardian regarding: the historical points, exam findings, and any diagnostic results supporting the discharge/admit diagnosis, the presence of at least one elevated blood pressure reading (>120/80) during this emergency department visit, the need for outpatient follow up. Response to treatment: the patient's symptoms have mildly improved after treatment. 08/20 13:14 Order name: Urine Dipstick-Ancillary EDUT 08/20 13:17 Order name: Urine --Ancillary (enter results) eb 08/20 13:12 Order name: Urine Dipstick-Ancillary (obtain specimen); Complete Time: 13:12 ma2 08/20 13:12 Order name: Urine Test (obtain specimen); Complete Time: 13:12 ma2 Administered Medications: No medications were administered Disposition Summary: 08/20/21 13:18 Discharge Ordered Location: Home ma2 Condition: Stable ma2 Diagnosis - Acute cystitis ma2 Followup: ma2 - With: Private Physician - When: Tomorrow - Reason: Continuance of care Discharge Instructions: - Discharge Summary Sheet ma2 - Urinary Tract Infection, Adult, Ilna-oh-Eenq ma2 Forms: - Medication Reconciliation Form ma2 - Thank You Letter ma2 - Antibiotic Education ma2 - Prescription Opioid Use ma2 - Work release form eb Prescriptions: - Diclofenac Sodium 75 mg Oral Tablet Sustained Release - take 1 tablet by ORAL route 2 times per day; 30 tablet; Refills: 0, Product ma2 Selection Permitted - Bactrim DS 800-160 mg Oral Tablet - take 1 tablet by ORAL route every 12 hours for 5 days; 10 tablet; Refills: 0, ma2 Product Selection Permitted Signatures: Dispatcher [employer] EDYunior Horowitz MD MD ma2 Keiko Holly RN RN vg1
[2021-08-20 13:42] VITALS: BP 119/80; TEMP 97.6; O2SAT 99
--- OUTSIDE RECORDS SUMMARY | 2021-08-27 14:25 | XMS REPORT | Continuity of Care Document ---
:[address] [facility] t Address [address] [place] [address] Care Team Providers Name Role Phone Moraima VIERA Attending Clinician Unavailable Problems This patient has no known problems. Allergies, Adverse Reactions, Alerts Allergy Allergy Status Severity Reaction(s) Onset Inactive Treating Comm ents Source Name Type Date Date Clinician NO KNOWN Drug Active [facility] JERI Kendrick [facility] Medications This patient has no known medications. Procedures This patient has no known procedures. Encounters Start End Encounter Admission Attending Care Care Encounter Source Date/Time Date/Time Type Type Clinicians Facility Department ID 2019-12-31 2019-12-31 Outpatient R MAXIMILIANO DEASHLEY [facility] [id number] 10:40:00 10:40:[address] [facility] Results This patient has no known results.
== END 2021-08-20 13:25 | disposition home or self-care (01) ==
LOC: ER 12:50
DX: N30.00 Acute cystitis without hematuria (principal)
CPT/HCPCS: 81003; 81025; 99283

== ENCOUNTER 2021-10-29 12:44 | Emergency (ER) | payer SELFPAY ==
--- NOTE | 2021-10-29 15:22 | ER ---
Nurse's Notes [facility] Name: Marycarmen Koch Age: 25 yrs Sex: Female : 1995 Arrival Date: 10/29/2021 Time: 12:48 Bed Treatment Private MD: Diagnosis: Coronavirus infection, unspecified Presentation: 10/29 12:52 Chief complaint: Patient states: my boyfriend tested POSITIVE for Covid 3 days ago and tw2 got his results today. scratchy throat and cough since this morning. Coronavirus screen: congestion, cough unrelated to allergies, Client presents with at least one sign or symptom that may indicate coronavirus-19. Standard/surgical mask placed on the client. Provider contacted for isolation considerations. Ebola Screen: Patient denies travel to an Ebola-affected area in the 21 days before illness onset. Onset of symptoms was October 29, 2021. 12:52 Method Of Arrival: Ambulatory tw2 12:52 Acuity: ESDRAS 4 tw2 15:17 Initial Sepsis Screen: Does the patient meet any 2 criteria? No. Patient's initial ab2 sepsis screen is negative. Does the patient have a suspected source of infection? No. Patient's initial sepsis screen is negative. Risk Assessment: Do you want to hurt yourself or someone else? Patient reports no desire to harm self or others. Triage Assessment: 12:55 General: Appears in no apparent distress. Behavior is calm, cooperative, appropriate tw2 for age. Pain: Denies pain. Respiratory: Reports "scratchy throat" Airway is patent Respiratory effort is even, unlabored, Respiratory pattern is regular, symmetrical. 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 - Social history:: Smoking status: Patient denies any tobacco usage or history of. Screenin:17 Abuse screen: Denies threats or abuse. Denies injuries from another. Nutritional ab2 screening: No deficits noted. Tuberculosis screening: No symptoms or risk factors identified. Fall Risk None identified. Assessment: 15:15 General: Appears in no apparent distress. comfortable, Behavior is calm, cooperative, ab2 appropriate for age. Pain: Denies pain. Neuro: No deficits noted. Level of Consciousness is awake, alert, obeys commands, Oriented to person, place, time, situation, Appropriate for age Strategic Sourcing Specialist are equal bilaterally Moves all extremities. Gait is steady, Speech is normal, Facial symmetry appears normal. Cardiovascular: No deficits noted. Reports Denies chest pain, Heart tones S1 S2 present Patient's skin is warm and dry. Respiratory: Reports cough that is non-productive, dry, Airway is patent. GI: No deficits noted. No signs and/or symptoms were reported involving the gastrointestinal system. : No deficits noted. No signs and/or symptoms were reported regarding the genitourinary system. EENT: Reports sore throat. Derm: No deficits noted. No signs and/or symptoms reported regarding the dermatologic system. Musculoskeletal: No deficits noted. No signs and/or symptoms reported regarding the musculoskeletal system. Vital Signs: 12:55 BP 116 / 80; Pulse 86; Resp 18; Temp 98.4(O); Pulse Ox 100% on R/A; Weight 72.57 kg; tw2 Height 5 ft. 2 in. (157.48 cm); 15:16 BP 122 / 71; Pulse 79; Resp 16; Pulse Ox 99% on R/A; Pain 0/10; ab2 12:55 Body Mass Index 29.26 (72.57 kg, 157.48 cm) tw2 ED Course: 12:48 Patient arrived in ED. mr 12:53 Triage completed. tw2 12:55 Arm band placed on. tw2 12:58 COVID-19 SARS RT PCR (Document "Date of Onset" if Symptomatic) Sent. tw2 15:13 Kev Powell NP is PHCP. pm1 15:13 Melchor Delgado MD is Attending Physician. pm1 15:15 Taye Perdomo is Primary Nurse. ab2 15:17 Patient has correct armband on for positive identification. Bed in low position. Call ab2 light in reach. Side rails up X2. 15:17 No provider procedures requiring assistance completed. ab2 15:25 Patient did not have IV access during this emergency room visit. ab2 Administered Medications: No medications were administered Outcome: 15:22 Discharge ordered by . pm1 15:25 Discharged to home ambulatory. ab2 15:25 Condition: good 15:25 Discharge instructions given to patient, Instructed on discharge instructions, follow up and referral plans. medication usage, Demonstrated understanding of instructions, follow-up care, medications, Prescriptions given X 1. 15:35 Patient left the ED. ab2 Signatures: Gena Hall AndreKev, SHAKER TENDER SHAKER TENDER pm1 Lynette Nunes RN RN tw2 Taye Perdomo ab2
--- NOTE | 2021-10-29 15:22 | EDPHYS ---
Physician Documentation [facility] Name: Marycarmen Koch Age: 25 yrs Sex: Female : 1995 Arrival Date: 10/29/2021 Time: 12:48 Bed Treatment Private MD: ED Physician Melchor Delgado HPI: 10/29 15:31 This 25 yrs old Female presents to ER via Ambulatory with complaints of Cough, pm1 Sore throat. 15:31 The patient or guardian reports cough, with no sputum, Sore throat. pm1 15:31 Onset: The symptoms/episode began/occurred this morning. Severity of symptoms: in the pm1 emergency department the symptoms are unchanged. Modifying factors: The symptoms are alleviated by Tylenol, the symptoms are aggravated by nothing. Associated signs and symptoms: Pertinent positives: sore throat, Cough, Pertinent negatives: chest pain, diarrhea, fever, vomiting. The patient has not experienced similar symptoms in the past. The patient has not recently seen a physician. Boyfriend tested positive for covid recently. 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 - Social history:: Smoking status: Patient denies any tobacco usage or history of. ROS: 15:31 Constitutional: Negative for fever, chills, and weight loss, Cardiovascular: Negative pm1 for chest pain, palpitations, and edema, Respiratory: Negative for shortness of breath, cough, wheezing, and pleuritic chest pain. 15:31 Abdomen/GI: Negative for abdominal pain, nausea, vomiting, diarrhea, and constipation, Back: Negative for injury and pain, MS/Extremity: Negative for injury and deformity, Skin: Negative for injury, rash, and discoloration, Neuro: Negative for headache, weakness, numbness, tingling, and seizure. 15:31 ENT: Positive for sore throat, Negative for drainage from ear(s), ear pain. 15:31 All other systems are negative. Exam: 15:31 Constitutional: This is a well developed, well nourished patient who is awake, alert, pm1 and in no acute distress. Head/Face: Normocephalic, atraumatic. 15:31 Back: No spinal tenderness. No costovertebral tenderness. Full range of motion. Skin: Warm, dry with normal turgor. Normal color with no rashes, no lesions, and no evidence of cellulitis. MS/ Extremity: Pulses equal, no cyanosis. Neurovascular intact. Full, normal range of motion. 15:31 ENT: Mouth: Lips: normal, moist, Oral mucosa: normal, pink and intact, moist. 15:31 Neck: Exam negative for acute changes. 15:31 Cardiovascular: Exam negative for acute changes, Rate: normal, Rhythm: regular, Pulses: no pulse deficits are appreciated. 15:31 Respiratory: Exam negative for acute changes, respiratory distress, shortness of breath, Breath sounds: are clear throughout. 15:31 Neuro: Exam negative for acute changes, Orientation: is normal, Mentation: is normal, Motor: is normal, moves all fours. Vital Signs: 12:55 BP 116 / 80; Pulse 86; Resp 18; Temp 98.4(O); Pulse Ox 100% on R/A; Weight 72.57 kg; tw2 Height 5 ft. 2 in. (157.48 cm); 15:16 BP 122 / 71; Pulse 79; Resp 16; Pulse Ox 99% on R/A; Pain 0/10; ab2 12:55 Body Mass Index 29.26 (72.57 kg, 157.48 cm) tw2 MDM: 15:13 Patient medically screened. pm1 15:21 Data reviewed: vital signs. Data interpreted: Pulse oximetry: on room air is 99 %. pm1 Interpretation: normal. Counseling: I had a detailed discussion with the patient and/or guardian regarding: the historical points, exam findings, and any diagnostic results supporting the discharge/admit diagnosis, lab results, the need for outpatient follow up, to return to the emergency department if symptoms worsen or persist or if there are any questions or concerns that arise at home. 10/29 12:54 Order name: COVID-19 SARS RT PCR (Document "Date of Onset" if Symptomatic); Complete tw2 Time: 15:13 Administered Medications: No medications were administered Disposition Summary: 10/29/21 15:22 Discharge Ordered Location: Home pm1 Problem: new pm1 Symptoms: have improved pm1 Condition: Stable pm1 Diagnosis - Coronavirus infection, unspecified pm1 Followup: pm1 - With: Emergency Department - When: As needed - Reason: Worsening of condition Followup: pm1 - With: Private Physician - When: 2 - 3 days - Reason: Recheck today's complaints, Continuance of care, Re-evaluation by your physician Discharge Instructions: - COVID-19 pm1 - COVID-19 Frequently Asked Questions pm1 - Discharge Summary Sheet tw2 - 10 Things You Can Do to Manage Your COVID-19 Symptoms at Home - [facility] pm1 - COVID-19: Quarantine vs. Isolation - [facility] pm1 Forms: - Work release form tw2 - Medication Reconciliation Form pm1 - Thank You Letter pm1 - Antibiotic Education pm1 - Prescription Opioid Use pm1 Prescriptions: - Guaifenesin AC 10-100 mg/5 mL Oral Liquid - take 10 milliliters by ORAL route every 4 hours As needed; 240 milliliter; pm1 Refills: 0, Product Selection Permitted Addendum: 10/30/2021 18:41 Co-signature as Attending Physician, Melchor Delgado MD I agree with the assessment and c pond plan of care. Signatures: Dispatcher [employer] EDMelchor Fowler MD MD cha Marinas, Patrick, NP RAINBOW TROUT FARM MANAGER pm1 Lynette Nunes RN RN tw2
[2021-10-29 15:45] VITALS: TEMP 98.4
[2021-10-29 15:47] VITALS: BP 122/71; O2SAT 99
== END 2021-10-29 15:35 | disposition home or self-care (01) ==
LOC: ER 12:44
DX: U07.1 COVID-19 (principal)
CPT/HCPCS: 99283; U0003

== ENCOUNTER 2022-02-27 12:39 | Emergency (ER) | payer SELFPAY ==
--- NOTE | 2022-02-27 13:35 | ER ---
Nurse's Notes [facility] Name: Marycarmen Koch Age: 26 yrs Sex: Female : 1995 Arrival Date: 02/27/2022 Time: 12:44 Bed Waiting Private MD: Diagnosis: Rash and other nonspecific skin eruption Presentation: 02/27 13:10 Chief complaint: Patient states: Rash to hand and feet for 1 week. Daughter diagnosed ll1 with scabies last month. Coronavirus screen: Vaccine status: Patient reports being unvaccinated. Client denies travel out of the [place] in the last 14 days. At this time, the client does not indicate any symptoms associated with coronavirus-19. Ebola Screen: Patient denies travel to an Ebola-affected area in the 21 days before illness onset. Initial Sepsis Screen: Does the patient meet any 2 criteria? No. Patient's initial sepsis screen is negative. Does the patient have a suspected source of infection? Yes: Skin breakdown/wound. Risk Assessment: Do you want to hurt yourself or someone else? Patient reports no desire to harm self or others. Onset of symptoms was February 20, 2022. 13:10 Method Of Arrival: Ambulatory ll1 13:10 Acuity: ESDRAS 4 ll1 Triage Assessment: 13:13 General: Appears uncomfortable, Behavior is cooperative, appropriate for age. Pain: ll1 Complains of pain in right hand and left hand Quality of pain is described as aching, Aggravated by increased activity. Derm: Reports rash to feet and hands that itch. 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 - Social history:: Smoking status: Patient denies any tobacco usage or history of. Screenin:49 Abuse screen: Denies threats or abuse. Nutritional screening: No deficits noted. ll1 Tuberculosis screening: No symptoms or risk factors identified. Fall Risk Total Araya Fall Scale indicates No Risk (0-24 pts). Assessment: 15:49 Reassessment: No changes from previously documented assessment. Patient and/or family ll1 updated on plan of care and expected duration. Pain level reassessed. Patient is alert, oriented x 3, equal unlabored respirations, skin warm/dry/pink. Vital Signs: 13:10 BP 96 / 71; Pulse 87; Resp 17; Temp 97.9; Pulse Ox 100% ; Height 5 ft. 2 in. (157.48 ll1 cm); Pain 5/10; ED Course: 12:44 Patient arrived in ED. ds1 13:05 [facility] 13:05 Melchor Delgado MD is Attending Physician. [facility] 13:10 Arm band placed on. ll1 13:12 Triage completed. ll1 15:49 Patient has correct armband on for positive identification. Bed in low position. Call ll1 light in reach. Cardiac monitoring not applicable on this patient. 15:49 No provider procedures requiring assistance completed. Patient did not have IV access ll1 during this emergency room visit. Administered Medications: No medications were administered Medication: 19:45 VIS not applicable for this client. ll1 Outcome: 13:34 Discharge ordered by . [facility] 15:49 Patient left the ED. ll1 15:49 Discharged to home ambulatory. ll1 15:49 Condition: stable 15:49 Discharge instructions given to patient, Instructed on discharge instructions, follow up and referral plans. medication usage, Demonstrated understanding of instructions, follow-up care, medications, Prescriptions given X 2. Signatures: French Belcher PA PA jmm Sanford, Demi ds1 Andreia Lin RN RN ll1 Corrections: (The following items were deleted from the chart) 13:14 13:10 Pulse 87bpm; Resp 17bpm; Pulse Ox 100%; Temp 97.9F; Height 5 ft. 2 in.; Pain ll1 5/10; ll1
--- NOTE | 2022-02-27 13:35 | EDPHYS ---
Physician Documentation [facility] Name: Marycarmen Koch Age: 26 yrs Sex: Female : 1995 Arrival Date: 02/27/2022 Time: 12:44 Bed Waiting Private MD: EZEQUIEL Physician Melchor Delgado HPI: 02/27 13:32 This 26 yrs old Female presents to ER via Ambulatory with complaints of Rash. jmm 13:32 The patient's rash thought to be caused by scabies. Onset: The symptoms/episode jmm began/occurred gradually. Associated signs and symptoms: Pertinent positives: itching, Pertinent negatives: swelling of lips, swelling of throat, swelling of tongue. Treatment given at home: tea tree oil. 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 - Social history:: Smoking status: Patient denies any tobacco usage or history of. ROS: 13:32 Constitutional: Negative for fever, chills, and weight loss, Cardiovascular: Negative jmm for chest pain, palpitations, and edema, Respiratory: Negative for shortness of breath, cough, wheezing, and pleuritic chest pain. 13:32 Skin: Positive for erythema. 13:32 All other systems are negative. Exam: 13:32 Constitutional: This is a well developed, well nourished patient who is awake, alert, jmm and in no acute distress. Head/Face: atraumatic. Eyes: EOMI, no conjunctival erythema appreciated ENT: Moist Mucus Membranes Neck: Trachea midline, Supple Chest/axilla: Normal chest wall appearance and motion. Cardiovascular: Regular rate and rhythm. No edema appreciated Respiratory: Normal respirations, no respiratory distress appreciated Abdomen/GI: Non distended, soft Back: Normal ROM 13:32 MS/ Extremity: Moves all extremities, no obvious deformities appreciated, no edema noted to the lower extremities Neuro: Awake and alert Psych: Behavior is normal, Mood is normal, Patient is cooperative and pleasant 13:32 Skin: rash noted to the hands bilaterally. Vital Signs: 13:10 BP 96 / 71; Pulse 87; Resp 17; Temp 97.9; Pulse Ox 100% ; Height 5 ft. 2 in. (157.48 ll1 cm); Pain 5/10; MDM: 13:32 Patient medically screened. [facility] 13:34 Data reviewed: vital signs, nurses notes. Counseling: I had a detailed discussion with kaur the patient and/or guardian regarding: the historical points, exam findings, and any diagnostic results supporting the discharge/admit diagnosis, the need for outpatient follow up, to return to the emergency department if symptoms worsen or persist or if there are any questions or concerns that arise at home. Administered Medications: No medications were administered Disposition Summary: 02/27/22 13:34 Discharge Ordered Location: Home [facility] Condition: Stable [facility] Diagnosis - Rash and other nonspecific skin eruption [facility] Followup: [facility] - With: Private Physician - When: 2 - 3 days - Reason: Recheck today's complaints, Continuance of care, Re-evaluation by your physician Discharge Instructions: - Discharge Summary Sheet [facility] - Scabies, Adult [facility] Forms: - Medication Reconciliation Form [facility] - Thank You Letter [facility] - Antibiotic Education [facility] - Prescription Opioid Use [facility] Prescriptions: - Elimite 5 % Topical Cream - apply 1 application by TOPICAL route one time Wash after 12 hours.; 60 gram; [facility] Refills: 0, Product Selection Permitted - Hydroxyzine HCl 25 mg Oral Tablet - take 1 tablet by ORAL route every 6 hours As needed; 30 tablet; Refills: 0, [facility] Product Selection Permitted Signatures: French Belcher PA PA jmm Lewis, Lynsay, RN RN ll1
[2022-02-27 15:53] VITALS: BP 96/71; TEMP 97.9; O2SAT 100
== END 2022-02-27 15:49 | disposition home or self-care (01) ==
LOC: ER 12:39
DX: R21 Rash and other nonspecific skin eruption (principal)
CPT/HCPCS: 99282

== ENCOUNTER 2022-04-14 13:29 | Emergency (ER) | payer SELFPAY ==
[2022-04-14 14:49] LABS: Hematocrit 38.6 % (36.0-45.0); Lymphocytes % 29.3 % (15.3-44.8); MCV 93.8 fL (80-100); MPV 7.6 fL (7.6-11.3); RBC Red Blood Cell Count 4.12 M/uL (3.86-4.86)
[2022-04-14 15:15] LABS: BUN Blood Urea Nitrogen 7 mg/dL (7-18); Bicarbonate 26 mmol/L (21-32); Glomerular Filtration Rate 114 ml/min (=/>90); Glucose Level 83 mg/dL (74-106); Potassium 3.8 mmol/L (3.5-5.1); Sodium Level 138 mmol/L (136-145)
[2022-04-14 15:17] LABS: HCG, Quantitative < 1 mIU/mL (1-3)
--- NOTE | 2022-04-14 15:51 | RAD REPORT ---
EXAM DESCRIPTION: RAD - Shoulder Left 2 View - 04/14/2022 2:58 pm CLINICAL HISTORY: Left shoulder pain FINDINGS: No fracture or dislocation is seen. No bone or joint abnormality noted
--- NOTE | 2022-04-14 17:09 | RAD REPORT ---
EXAM DESCRIPTION: CT - Abdomen Pelvis W Contrast - 04/14/2022 4:50 pm CLINICAL HISTORY: Abdominal pain COMPARISON: none. TECHNIQUE: Computed axial tomography of the abdomen pelvis was obtained. 100 cc Isovue-300 was admin istered intravenously. Oral contrast was not requested which limits evaluation of bowel and appendix All CT scans are performed using dose optimization technique as appropriate and may include automated exposure control or mA/KV adjustment according to patient size. FINDINGS: 18 millimeter vascular lesion right lobe of the liver. Spleen, pancreas, adrenal and kidneys appear unremarkable. There is no evidence of diverticulitis. Small umbilical hernia. No adnexal mass Normal appendix IMPRESSION: 18 millimeter vascular hepatic lesion. Ultrasound is recommended
--- NOTE | 2022-04-14 18:24 | RAD REPORT ---
EXAM DESCRIPTION: US - Abdomen Exam Limited - 04/14/2022 6:08 pm CLINICAL HISTORY: Abdominal pain. Abnormal CT COMPARISON: CT abdomen April 14, 2022 FINDINGS: 18 millimeter vague mildly echogenic areas present within the anterior segment right lobe of the liver probably correspond to the abnormality seen on CT IMPRESSION: 18 millimeter hepatic lesion does not have classic hemangioma characteristics on ultraso und. It is recommended that the patient have a nonemergent MRI of the liver with contrast for further eval uation
--- NOTE | 2022-04-14 18:57 | EDPHYS ---
Physician Documentation [facility] Name: Marycarmen Koch Age: 26 yrs Sex: Female : 1995 Arrival Date: 04/14/2022 Time: 13:31 Bed 26 Private MD: ED Physician Jorge Olivares HPI: 04/14 14:48 This 26 yrs old Female presents to ER via Ambulatory with complaints of Arm jmm Pain, Abdominal Pain, Vaginal Bleeding. 14:48 This is a 26 year old female with no chronic medical conditions that presents to the ED jmm with complaints of lower pelvic/abdominal pain, vaginal bleeding. Symptoms began last night. Patient has concerns she may have had a miscarriage. Patient states having a tubal ligation. Patient also complains of left shoulder pain which radiates to her left elbow. Denies injury. Denies chest pain, denies shortness of breath. . 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 - Social history:: Smoking status: Patient denies any tobacco usage or history of. ROS: 14:48 Constitutional: Negative for fever, chills, and weight loss, Cardiovascular: Negative jmm for chest pain, palpitations, and edema, Respiratory: Negative for shortness of breath, cough, wheezing, and pleuritic chest pain. 14:48 Abdomen/GI: Positive for abdominal pain. 14:48 MS/extremity: Positive for pain. 14:48 All other systems are negative. Exam: 14:48 Constitutional: This is a well developed, well nourished patient who is awake, alert, jmm and in no acute distress. Head/Face: atraumatic. Eyes: EOMI, no conjunctival erythema appreciated ENT: Moist Mucus Membranes Neck: Trachea midline, Supple Chest/axilla: Normal chest wall appearance and motion. Cardiovascular: Regular rate and rhythm. 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 14:48 Skin: Appearance: Color: normal in color. 14:48 Neuro: Orientation: is normal, Mentation: is normal, Memory: is normal. 14:48 Psych: Behavior/mood is pleasant, cooperative. Vital Signs: 14:02 BP 110 / 79; Pulse 75; Resp 17; Temp 97.9; Pulse Ox 98% ; Weight 71.21 kg; Height 5 ft. jl7 2 in. (157.48 cm); Pain 6/10; 14:02 Body Mass Index 28.72 (71.21 kg, 157.48 cm) jl7 MDM: 14:28 Patient medically screened. [facility] 18:55 Data reviewed: vital signs, nurses notes. Counseling: I had a detailed discussion with kaur the patient and/or guardian regarding: the historical points, exam findings, and any diagnostic results supporting the discharge/admit diagnosis, lab results, the need for outpatient follow up, to return to the emergency department if symptoms worsen or persist or if there are any questions or concerns that arise at home. 19:10 ED course: US and CT findings discussed with the patient along with the need for jmm further evaluation. patient understood and agrees with the plan of care. . 04/14 14:29 Order name: Abo/rh Typing; Complete Time: 15:39 [facility] 04/14 14:29 Order name: Basic Metabolic Panel; Complete Time: 15:39 [facility] 04/14 14:29 Order name: CBC with Diff; Complete Time: 15:12 [facility] 04/14 14:29 Order name: Quantitative Hcg; Complete Time: 15:39 [facility] 04/14 14:32 Order name: Shoulder Left (2 View) XRAY; Complete Time: 15:53 [facility] 04/14 15:46 Order name: CT Abd/Pelvis - IV Contrast Only; Complete Time: 17:11 [facility] 04/14 14:29 Order name: IV Saline Lock; Complete Time: 14:43 [facility] 04/14 14:29 Order name: Labs collected and sent; Complete Time: 14:43 [facility] 04/14 14:29 Order name: NPO; Complete Time: 14:53 [facility] 04/14 17:12 Order name: US Abdomen Limited; Complete Time: 18:25 [facility] Administered Medications: No medications were administered Disposition: 04/15 07:38 Co-signature as Attending Physician, Jorge Olivares MD I agree with the assessment and kdr plan of care. Disposition Summary: 04/14/22 18:56 Discharge Ordered Location: Home [facility] Condition: Stable jmm Diagnosis - Lower abdominal pain, unspecified jmm - Lesion of the Liver m Followup: [facility] - With: Nicholas Latif MD - When: 2 - 3 days - Reason: Recheck today's complaints, Continuance of care, Re-evaluation by your physician Discharge Instructions: - Abdominal Pain, Adult jmm - Discharge Summary Sheet ap3 Forms: - Medication Reconciliation Form [facility] - Thank You Letter [facility] - Antibiotic Education [facility] - Prescription Opioid Use [facility] - Work release form ap3 Signatures: Dispatcher [employer] Jorge Forrest MD MD kdr Mickail, Joel, PA PA [facility] Veronica Schumacher RN RN jl7 Corrections: (The following items were deleted from the chart) 04/14 18:40 14:29 Urine Test ordered. [facility] ap3
--- NOTE | 2022-04-14 18:57 | ER ---
Nurse's Notes [facility] Name: Marycarmen Koch Age: 26 yrs Sex: Female : 1995 Arrival Date: 04/14/2022 Time: 13:31 Bed 26 Private MD: Diagnosis: Lower abdominal pain, unspecified;Lesion of the Liver Presentation: 04/14 14:02 Chief complaint: Patient states: RLQ cramping, vaginal bleeding, left shoulder pain x 1 jl7 day. Coronavirus screen: Vaccine status: Patient reports being unvaccinated. At this time, the client does not indicate any symptoms associated with coronavirus-19. Ebola Screen: No symptoms or risks identified at this time. Initial Sepsis Screen: Does the patient meet any 2 criteria? No. Patient's initial sepsis screen is negative. Does the patient have a suspected source of infection? No. Patient's initial sepsis screen is negative. Risk Assessment: Do you want to hurt yourself or someone else? Patient reports no desire to harm self or others. Onset of symptoms was April 14, 2022. 14:02 Method Of Arrival: Ambulatory [facility] 14:02 Acuity: ESDRAS 3 jl7 Triage Assessment: 14:04 General: Appears in no apparent distress. uncomfortable, Behavior is calm, cooperative, jl7 appropriate for age. Pain: Complains of pain in right lower quadrant Pain currently is 6 out of 10 on a pain scale. GI: Reports cramping. : Reports vaginal bleeding that is. 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 - Social history:: Smoking status: Patient denies any tobacco usage or history of. Screenin:54 Abuse screen: Denies threats or abuse. Nutritional screening: No deficits noted. ap3 Tuberculosis screening: No symptoms or risk factors identified. Fall Risk None identified. Assessment: 15:57 Reassessment: No changes from previously documented assessment. Patient and/or family ap3 updated on plan of care and expected duration. Pain level reassessed. Patient is alert, oriented x 3, equal unlabored respirations, skin warm/dry/pink. General: Appears in no apparent distress. comfortable, Behavior is calm, cooperative, appropriate for age. 18:17 Reassessment: No changes from previously documented assessment. Patient and/or family ap3 updated on plan of care and expected duration. Pain level reassessed. Patient is alert, oriented x 3, equal unlabored respirations, skin warm/dry/pink. Vital Signs: 14:02 BP 110 / 79; Pulse 75; Resp 17; Temp 97.9; Pulse Ox 98% ; Weight 71.21 kg; Height 5 ft. jl7 2 in. (157.48 cm); Pain 6/10; 14:02 Body Mass Index 28.72 (71.21 kg, 157.48 cm) jl7 ED Course: 13:31 Patient arrived in ED. rg4 13:43 French Belcher PA is PHCP. [facility] 13:43 Jorge Olivares MD is Attending Physician. [facility] 14:04 Triage completed. [facility] 14:04 Arm band placed on right wrist. [facility] 14:33 Viviana Bertrand, KARTHIKEYAN is Primary Nurse. ap3 14:35 Initial lab(s) drawn, by oh, sent to lab. Inserted saline lock: 20 gauge in right vg1 antecubital area, using aseptic technique. Blood collected. 15:00 Shoulder Left (2 View) XRAY In Process Unspecified. EDMS 15:54 Patient has correct armband on for positive identification. Bed in low position. Call ap3 light in reach. Side rails up X 1. ski topper on. Pulse ox on. 16:51 CT Abd/Pelvis - IV Contrast Only In Process Unspecified. EDMS 18:09 US Abdomen Limited In Process Unspecified. EDMS 18:50 IV discontinued, intact, bleeding controlled, No redness/swelling at site. Pressure ap3 dressing applied. 18:56 Nicholas Latif MD is Referral Physician. [facility] 19:01 No provider procedures requiring assistance completed. ap3 Administered Medications: No medications were administered Medication: 15:54 VIS not applicable for this client. ap3 Outcome: 18:56 Discharge ordered by . [facility] 19:01 Discharged to home ambulatory. ap3 19:01 Condition: good 19:01 Discharge instructions given to patient, Instructed on discharge instructions, follow up and referral plans. Demonstrated understanding of instructions, follow-up care. 19:01 Patient left the ED. ap3 Signatures: Dispatcher [employer] EDMS French Belcher PA PA jmm Garcia, Rubi rg4 Veronica Schumacher, RN RN jl7 Viviana Bertrand RN RN ap3 Keiko Holly RN RN vg1
[2022-04-14 19:10] VITALS: BP 110/79; TEMP 97.9; O2SAT 98
== END 2022-04-14 19:01 | disposition home or self-care (01) ==
LOC: ER 13:29
DX: R10.30 Lower abdominal pain, unspecified (principal); K76.9 Liver disease, unspecified; M25.512 Pain in left shoulder
CPT/HCPCS: 36415; 74177; 76705; 80048; 84702; 85025; 86900; 86901; 99284; Q9967

== ENCOUNTER 2022-11-06 13:28 | Emergency (ER) | payer SELFPAY ==
--- OUTSIDE RECORDS SUMMARY | 2022-11-06 13:34 | XMS REPORT | Continuity of Care Document ---
:1995 Author Organization [facility] t Address [address] [place] [address] Care Team Providers Name Role Phone KELLEN MCLAIN Primary Care Physician Unavailable DARLENE COOK Attending Clinician Unavailable JACKIE JUNIOR Attending Clinician Unavailable PIPPA VIERA Attending Clinician Unavailable Payers Payer Name Policy Type Policy Number Effective Date Expiration Date [employer] [id number] 2022 00:00:00 Problems This patient has no known problems. Allergies, Adverse Reactions, Alerts Allergy Allergy Status Severity Reaction(s) Onset Inactive Treating Comm ents Source Name Type Date Date Clinician NO KNOWN Drug Active [facility] Medications This patient has no known medications. Procedures This patient has no known procedures. Encounters Start End Encounter Admission Attending Care Care Encounter Source Date/Time Date/Time Type Type Clinicians Facility Department ID 2022-04-28 2022-04-28 Outpatient R [facility] [id number] [facility] 09:00:00 09:00:[id number] [facility] 2022-04-28 2022-04-28 Outpatient R [facility] [id number] Univers 09:00:00 09:00:00 DARLENE julian o champ [facility] 2022-04-03 2022-04-03 Outpatient R [facility] [id number] Univers 08:15:00 08:15:00 JACKIE [id number] ity o f [facility] 2022-04-03 2022-04-03 Outpatient Luis E [facility] [id number] Univers 08:15:00 08:15:00 JACKIE plata f [facility] 2019-12-31 2019-12-31 Outpatient R [facility] [id number] Univers 10:40:00 10:40:00 PIPPA julian of [facility] Results This patient has no known results.
[2022-11-06 14:43] LABS: Urine Blood Trace-lysed (Negative); Urine Glucose Negative (Negative); Urine Protein Negative (Negative); Urine Specific Gravity 1.025 (1.005-1.030)
[2022-11-06 15:01] LABS: Urine Bacteria None Seen /HPF (<20); Urine Mucus 1+ /HPF (None Seen); Urine WBC Clump Occasional /HPF (None Seen)
[2022-11-06 15:55] LABS: SARS-COV-2 RT PCR NEGATIVE (NEGATIVE)
[2022-11-06 15:58] LABS: Urine Specific Gravity/Preg 1.025 (1.005-1.030)
--- NOTE | 2022-11-06 17:12 | RAD REPORT ---
EXAM DESCRIPTION: CT - Stone Protocol - 11/06/2022 4:50 pm CLINICAL HISTORY: RLQ pain COMPARISON: Abdomen Pelvis W Contrast dated 04/14/2022 TECHNIQUE: Axial 3 mm thick images were obtained without oral or IV contrast. The [id number] span s the entirety of the system including uppermost abdomen and lung bases. All CT scans are performed using dose optimization technique as appropriate and may include automated exposure control or mA/KV adjustment according to patient size. FINDINGS: No hydronephrosis is present and no obstructing ureteral calculi. No suspicious renal mass es. Isodense masses and pyelonephritis are not excluded on a stone protocol CT scan. No significant a drenal finding. Urinary bladder is mostly contracted limiting assessment. Bladder calculi seen. Imaged portions of the liver, spleen and pancreas show no suspicious findings on non-contrast imaging . No gallbladder or biliary tree abnormality identified. No suspicious bowel findings. No appendicitis findings. Uterus and ovaries show no suspicious finding s. No hernia, mass or bulky lymphadenopathy noted. No free air, free fluid or inflammatory stranding. No significant bony abnormality. IMPRESSION: Noncontrast CT abdomen pelvis study shows no appendicitis or other emergent finding. Isodense masses and pyelonephritis are not excluded on stone protocol technique.
--- NOTE | 2022-11-06 17:35 | ER ---
Nurse's Notes [facility] Name: Marycarmen Koch Age: 26 yrs Sex: Female : 1995 Arrival Date: 11/06/2022 Time: 13:32 Bed 12 Private MD: Diagnosis: UTI/ Urinary tract infection, site not specified;Lower abdominal pain, unspecified Presentation: 11/06 13:38 Chief complaint: Patient states: Headache, N/V/D that began 9 days ago that lasted 2 ss days. RLQ pain x 3 days. Coronavirus screen: Client denies travel out of the [place] in the last 14 days. Ebola Screen: Patient denies exposure to infectious person. Patient denies travel to an Ebola-affected area in the 21 days before illness onset. Initial Sepsis Screen: Does the patient meet any 2 criteria? No. Patient's initial sepsis screen is negative. Does the patient have a suspected source of infection? No. Patient's initial sepsis screen is negative. Risk Assessment: Do you want to hurt yourself or someone else? Patient reports no desire to harm self or others. Onset of symptoms was October 23, 2022. 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 - Social history:: Smoking status: Patient denies any tobacco usage or history of. Vital Signs: 13:38 BP 107 / 77; Pulse 81; Resp 14; Temp 98.4(TE); Pulse Ox 100% on R/A; Weight 68.04 kg; ss Height 5 ft. 1 in. (154.94 cm); Pain 6/10; 13:38 Body Mass Index 28.34 (68.04 kg, 154.94 cm) ED Course: 13:32 Patient arrived in ED. mr 13:40 Triage completed. ss 13:40 Arm band placed on right wrist. ss 13:49 Carolyn Sherman FNP-C is PHCP. snw 13:49 Jefferson Bentley DO is Attending Physician. snw 14:30 Noelle Nunez, RN is Primary Nurse. iw 14:42 COVID-19/FLU A+B Sent. iw 14:42 Strep Sent. iw 16:52 CT Stone Protocol In Process Unspecified. EDMS Administered Medications: 18:29 Drug: Rocephin (cefTRIAXone) 1 grams Route: IM; Site: right ventrogluteal; iw Outcome: 17:34 Discharge ordered by MD. snw 18:32 Patient left the ED. iw Signatures: Dispatcher [employer] EDMS Carolyn Sheramn FNP-C CASE MANAGER SPECIALIST-Ramseyw RafaelGena mr Noelle Nunez, RN RN iw Lizzie Carey RN RN ss
--- NOTE | 2022-11-06 17:35 | EDPHYS ---
Physician Documentation [facility] Name: Marycarmen Koch Age: 26 yrs Sex: Female : 1995 Arrival Date: 11/06/2022 Time: 13:32 Bed 12 Private MD: ED Physician Jefferson Bentley HPI: 11/06 16:53 This 26 yrs old Female presents to ER via Ambulatory with complaints of snw Headache, Vomiting/Diarrhea, Abdominal Pain. 16:53 The patient presents with abdominal pain in the lower abdomen. Onset: The snw symptoms/episode began/occurred acutely, 9 day(s) ago, and became persistent. The symptoms do not radiate. Associated signs and symptoms: Pertinent positives: nausea and vomiting, headache, Pertinent negatives: fever. The symptoms are described as achy. Severity of pain: At its worst the pain was mild moderate. It is unknown whether or not the patient has had similar symptoms in the past. The patient has not recently seen a physician. 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 - Social history:: Smoking status: Patient denies any tobacco usage or history of. ROS: 16:53 Eyes: Negative for injury, pain, redness, and discharge, ENT: Negative for injury, snw pain, and discharge, Neck: Negative for injury, pain, and swelling, Cardiovascular: Negative for chest pain, palpitations, and edema, Respiratory: Negative for shortness of breath, cough, wheezing, and pleuritic chest pain. 16:53 Back: Negative for injury and pain, : Negative for injury, bleeding, discharge, and swelling, MS/Extremity: Negative for injury and deformity, Skin: Negative for injury, rash, and discoloration. 16:53 Constitutional: Positive for body aches, malaise. 16:53 Abdomen/GI: Positive for abdominal pain, nausea, vomiting. 16:53 Neuro: Positive for headache. Exam: 16:52 Constitutional: This is a well developed, well nourished patient who is awake, alert, snw and in no acute distress. Head/Face: Normocephalic, atraumatic. Eyes: Pupils equal round and reactive to light, extra-ocular motions intact. Lids and lashes normal. Conjunctiva and sclera are non-icteric and not injected. Cornea within normal limits. Periorbital areas with no swelling, redness, or edema. ENT: Nares patent. No nasal discharge, no septal abnormalities noted. Tympanic membranes are normal and external auditory canals are clear. Oropharynx with no redness, swelling, or masses, exudates, or evidence of obstruction, uvula midline. Mucous membranes moist. Neck: Trachea midline, no thyromegaly or masses palpated, and no cervical lymphadenopathy. Supple, full range of motion without nuchal rigidity, or vertebral point tenderness. No Meningismus. Chest/axilla: Normal chest wall appearance and motion. Nontender with no deformity. No lesions are appreciated. Cardiovascular: Regular rate and rhythm with a normal S1 and S2. No gallops, murmurs, or rubs. Normal PMI, no JVD. No pulse deficits. Respiratory: Lungs have equal breath sounds bilaterally, clear to auscultation and percussion. No rales, rhonchi or wheezes noted. No increased work of breathing, no retractions or nasal flaring. Back: No spinal tenderness. No costovertebral tenderness. Full range of motion. Skin: Warm, dry with normal turgor. Normal color with no rashes, no lesions, and no evidence of cellulitis. MS/ Extremity: Pulses equal, no cyanosis. Neurovascular intact. Full, normal range of motion. Neuro: Awake and alert, GCS 15, oriented to person, place, time, and situation. Cranial nerves II-XII grossly intact. Motor strength 5/5 in all extremities. Sensory grossly intact. Cerebellar exam normal. Normal gait. 16:52 Abdomen/GI: Inspection: abdomen appears normal, Bowel sounds: normal, Palpation: mild abdominal tenderness, moderate abdominal tenderness, in the suprapubic area and right lower quadrant. Vital Signs: 13:38 BP 107 / 77; Pulse 81; Resp 14; Temp 98.4(TE); Pulse Ox 100% on R/A; Weight 68.04 kg; ss Height 5 ft. 1 in. (154.94 cm); Pain 6/10; 13:38 Body Mass Index 28.34 (68.04 kg, 154.94 cm) ss MDM: 14:07 Patient medically screened. snw 17:36 Differential diagnosis: appendicitis, urinary tract infection, viral resp infection, snw strep. Data reviewed: vital signs, nurses notes, lab test result(s), radiologic studies. I considered the following discharge prescriptions or medication management in the emergency department Medications were administered in the Emergency Department. See MAR. Counseling: I had a detailed discussion with the patient and/or guardian regarding: the historical points, exam findings, and any diagnostic results supporting the discharge/admit diagnosis, lab results, radiology results, the need for outpatient follow up, to return to the emergency department if symptoms worsen or persist or if there are any questions or concerns that arise at home. Special discussion: Based on the patient's Hx, exam, and Dx evaluation, there is no indication for emergent surgery or inpatient Tx. It is understood by the patient/guardian that if the Sx's persist or worsen they need to return immediately for re-evaluation. Based on the history and exam findings, there is no indication for further emergent testing or inpatient evaluation. I discussed with the patient/guardian the need to see the primary care provider for further evaluation of the symptoms. 11/06 13:51 Order name: Strep; Complete Time: 15:31 sn 11/06 13:51 Order name: COVID-19/FLU A+B; Complete Time: 15:56 snw 11/06 13:51 Order name: Urine Culture [facility] 11/06 13:51 Order name: Urine Microscopic Only; Complete Time: 15:09 [facility] 11/06 14:43 Order name: Urine Dipstick-Ancillary; Complete Time: 14:45 [facility] 11/06 15:22 Order name: Urine --Ancillary (enter results); Complete Time: 15:59 bd 11/06 13:51 Order name: Urine Dipstick-Ancillary (obtain specimen); Complete Time: 14:42 snw 11/06 13:51 Order name: Urine Test (obtain specimen); Complete Time: 15:22 snw 11/06 15:28 Order name: Throat Culture [facility] 11/06 15:58 Order name: CT Stone Protocol; Complete Time: 17:16 snw Administered Medications: 18:29 Drug: Rocephin (cefTRIAXone) 1 grams Route: IM; Site: right ventrogluteal; iw Disposition: 19:23 Co-signature as Attending Physician, Jefferson Bentley DO I was immediately available on-site ms3 in the Emergency Department for consultation in the care of the patient. Disposition Summary: 11/06/22 17:34 Discharge Ordered Location: Home snw Condition: Stable snw Diagnosis - UTI/ Urinary tract infection, site not specified snw - Lower abdominal pain, unspecified snw Followup: snw - With: Emergency Department - When: As needed - Reason: Worsening of condition Followup: snw - With: Private Physician - When: 2 - 3 days - Reason: Recheck today's complaints, Continuance of care, Re-evaluation by your physician Discharge Instructions: - Discharge Summary Sheet snw - Urinary Tract Infection, Adult snw - Abdominal Pain, Adult, [id number] snw - Rehydration, Adult snw - [place] Diet snw Forms: - Medication Reconciliation Form snw - Thank You Letter snw - Antibiotic Education snw - Prescription Opioid Use snw - Work release form iw Prescriptions: - Augmentin 875-125 mg Oral Tablet - take 1 tablet by ORAL route every 12 hours for 10 days; 20 tablet; Refills: 0, snw Product Selection Permitted - promethazine 25 mg Oral Tablet - take 1 tablet by ORAL route every 6 hours As needed; 20 tablet; Refills: 0, snw Product Selection Permitted Signatures: Dispatcher [employer] Carolyn Scott FNP-C CLERICAL ADMINISTRATOR-Csnw Noelle Nunez RN RN Lizzie Carey RN RN Jefferson Bentley DO DO ms3
[2022-11-06] MEDS ORDERED: CEFTRIAXONE 1000 MG/VIAL ONE (18:22)
[2022-11-06] MEDS ORDERED: LIDOCAINE 1% MPF 5 ML VIAL ONE (18:22)
[2022-11-06 20:25] VITALS: BP 107/77; TEMP 98.4; O2SAT 100
== END 2022-11-06 18:32 | disposition home or self-care (01) ==
LOC: ER 13:28
DX: N39.0 Urinary tract infection, site not specified (principal); Z20.822 Contact with and (suspected) exposure to COVID-19
CPT/HCPCS: 0240U; 74176; 76377; 81003; 81015; 81025; 87070; 87081; 87086; 87088; 96372; 99283; J2001

== ENCOUNTER 2023-06-24 19:59 | Emergency (ER) | payer OTHER, SELFPAY ==
--- OUTSIDE RECORDS SUMMARY | 2023-06-24 20:01 | XMS REPORT | Continuity of Care Document ---
:1995 Author Organization [facility] t Address [address] [facility] [address] [place] [id number] Care Team Providers Name Role Phone KELLEN MCLAIN Primary Care Physician Unavailable DARLENE COOK Attending Clinician Unavailable JACKIE JUNIOR Attending Clinician Unavailable PIPPA VIERA Attending Clinician Unavailable Payers Payer Name Policy Type Policy Number Effective Date Expiration Date [employer] [id number] 2022 00:00:00 Problems This patient has no known problems. Allergies, Adverse Reactions, Alerts Allergy Allergy Status Severity Reaction(s) Onset Inactive Treating Comm ents Source Name Type Date Date Clinician NO KNOWN Drug Active [facility] ALLERGIE Class ity of [facility] Medications This patient has no known medications. Procedures This patient has no known procedures. Encounters Start End Encounter Admission Attending Care Care Encounter Source Date/Time Date/Time Type Type Clinicians Facility Department ID 2022-04-28 2022-04-28 Outpatient R JOYCE [facility] [id number] Univers 09:00:00 09:00:00 DARLENE [id number] ity o [facility] 2022-04-28 2022-04-28 Outpatient R JOYCE [facility] [id number] Univers 09:00:00 09:00:00 DARLENE julian o champ [facility] 2022-04-03 2022-04-03 Outpatient R SANDI [facility] [id number] Univers 08:15:00 08:15:00 JACKIE [id number] ity o f [facility] 2022-04-03 2022-04-03 Outpatient Luis E JUNIOR [facility] [id number] Univers 08:15:00 08:15:00 JACKIE plata f [facility] 2019-12-31 2019-12-31 Outpatient R MAXIMILIANO, [facility] [id number] Univers 10:40:00 10:40:00 PIPPA julian of [facility] Results This patient has no known results.
[2023-06-24] MEDS ORDERED: HYDROCODONE/APAP 7.5/325 MG TAB ONE (20:49)
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
[2023-06-24 22:32] VITALS: TEMP 97.9; O2SAT 100
[2023-06-24 22:34] VITALS: BP 113/78
== END 2023-06-24 22:15 | disposition home or self-care (01) ==
LOC: ER 19:59
DX: S06.0X0A Concussion without loss of consciousness, initial encounter (principal); R07.89 Other chest pain; M54.50 Low back pain, unspecified; Y04.2XXA Assault by strike against or bumped into by another person, initial encounter; Y93.9 Activity, unspecified; Y92.9 Unspecified place or not applicable
CPT/HCPCS: 70450; 71045; 99283

== ENCOUNTER 2024-04-15 10:26 | Emergency (ER) | payer SELFPAY ==
--- OUTSIDE RECORDS SUMMARY | 2024-04-15 10:28 | XMS REPORT | Continuity of Care Document ---
Author Name Unknown Address [address] [facility] [address] thconnect Address [address] [facility]. [address] [place] [address] Care Team Providers Care Tool Machine Set Up Operator Name Role Phone KELLEN MCLAIN Primary Care Physician Unavail DARLENE Ely Attending Clinician Unavail JACKIE Florentino Attending Clinician UnavailPIPPA Mays Attending Clinician Unavailable Payers Payer Name Policy Type Policy Number Effective Date Expirati on Date Source [facility] [id number] 2022 00:00:00 Allergies, Adverse Reactions, Alerts Allergy Name Allergy Type Status Severity Reaction(s) Onset Date Inactive Date Treating Clinician Comments Source NO KNOWN ALLERGIE S Drug Class Active [facility] Encounters Start Date/Time End Date/Time Encounter Type Admission Type Attending Clinicians Care Facility Care Department Encounter ID Source 2022-04-28 09:00:00 2022-04-28 09:00:00 Outpatient DARLENE [facility] [id number] [facility] 2022-04-28 09:00:00 2022-04-28 09:00:00 Outpatient DARLENE [facility] [id number] [facility] 2022-04-03 08:15:00 2022-04-03 08:15:00 Outpatient JACKIE [facility] [id number] [facility] 2022-04-03 08:15:00 2022-04-03 08:15:00 Outpatient JACKIE [facility] [id number] [facility] 2019-12-31 10:40:00 2019-12-31 10:40:00 Outpatient PIPPA [facility] [id number] [facility]
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
[2024-04-15 12:05] VITALS: BP 127/88; TEMP 98.8; O2SAT 97
== END 2024-04-15 11:30 | disposition home or self-care (01) ==
LOC: ER 10:26
DX: K12.0 Recurrent oral aphthae (principal); B34.9 Viral infection, unspecified

== ENCOUNTER 2024-11-07 23:40 | Emergency (ER) | payer SELFPAY ==
--- OUTSIDE RECORDS SUMMARY | 2024-11-07 23:43 | XMS REPORT | Continuity of Care Document ---
Author Name Unknown Address [address] [facility] [address] [place], [place] [id number] [place] [address] thconnect Address [address] [facility] [address] [place] [address] Care Team Providers Care Supervisor Money Room Name Role Phone KELLEN MCLAIN Primary Care Physician Unavail DARLENE Ely Attending Clinician Unavail able JACKIE JUNIOR Attending Clinician Unavailab PIPPA Vazquez Attending Clinician Unavailable Payers Payer Name Policy Type Policy Number Effective Date Expirati on Date Source [facility] [id number] 2022 00:00:00 Allergies, Adverse Reactions, Alerts Allergy Name Allergy Type Status Severity Reaction(s) Onset Date Inactive Date Treating Clinician Comments Source NO KNOWN ALLERGIE S Drug Class Active [facility] Encounters Start Date/Time End Date/Time Encounter Type Admission Type Attending Clinicians Care Facility Care Department Encounter ID Source 2024-10-28 09:23:13 2024-10-28 09:23:13 Outpatient [facility] [id number] Raffi Brian Angel 2024-10-27 08:51:37 2024-10-27 08:51:37 Outpatient [facility] [id number] Raffi Ortiz 2022-04-28 09:00:00 2022-04-28 09:00:00 Outpatient DARLENE HALE [facility] [id number] [facility] 2022-04-28 09:00:00 2022-04-28 09:00:00 Outpatient DARLENE HALE [facility] [id number] [facility] 2022-04-03 08:15:00 2022-04-03 08:15:00 Outpatient JACKIE CATES [facility] [id number] [facility] 2022-04-03 08:15:00 2022-04-03 08:15:00 Outpatient JACKIE CATES [facility] [id number] [facility] 2019-12-31 10:40:00 2019-12-31 10:40:00 Outpatient PIPPA BERG [facility] [id number] [facility]
[2024-11-08 00:37] LABS: Absolute Basophils 0.1 K/uL (0-0.5); Absolute Lymphocytes (CBC) 2.1 K/uL (0.7-4.9); Absolute Monocytes 0.9 K/uL (0.1-1.3); Absolute Neutrophil 5.9 K/uL (1.8-8.0); Basophils % 0.8 % (0-1.3); Eosinophils % 0.1 % (0-4.4); Hematocrit 36.5 % (36.0-45.0); Hemoglobin 12.5 g/dL (12.0-15.0); Lymphocytes % 23.1 % (15.3-44.8); MCH 32.2 pg (27.0-35.0); MCHC 34.2 g/dL (32.0-36.0); MCV 94.1 fL (80-100); MPV 7.8 fL (7.6-11.3); Platelets 278 thou/uL (152-406); RBC Red Blood Cell Count 3.88 M/uL (3.86-4.86); Red Cell Distribution Width 13.1 % (12.1-15.2)
[2024-11-08 00:40] LABS: Specific Gravity 1.021 (1.005-1.030); Urine Bacteria None Seen /HPF (<20); Urine Bilirubin NEGATIVE (Negative); Urine Blood Negative (Negative); Urine Clarity Extremely Turbid (Clear); Urine Color Light-Yellow (Yellow); Urine Culture Reflex Order REFLEXED; Urine Glucose NEGATIVE (Negative); Urine Ketones NEGATIVE (Negative); Urine Microscopic Reflex YN ORDER UMIC; Urine Mucus Slight /HPF (None Seen); Urine Nitrite NEGATIVE (Negative); Urine Protein TRACE (Negative); Urine RBC <5 /HPF (None Seen); Urine Urobilinogen 1+ (Normal); Urine pH 8.5 (5.0-7.0)
[2024-11-08 00:41] LABS: Specific Gravity 1.021 (1.005-1.030)
[2024-11-08 00:45] LABS: ALT/SGPT 15 U/L (13-56); Albumin 3.8 g/dL (3.4-5.0); Albumin/Globulin Ratio 0.9 (1.1-1.8); Alkaline Phosphatase 60 U/L (45-117); Anion Gap 6.5 mEq/L (5.0-15.0); BUN Blood Urea Nitrogen 10 mg/dL (7-18); Bicarbonate 29 mEq/L (21-32); Bilirubin Total 0.4 mg/dL (0.2-1.0); Globulin 4.2 g/dL (2.3-3.5); Glomerular Filtration Rate 120 ml/min (=/>90); Glucose Level 101 mg/dL (74-106); Lipase 25 U/L (13-75); Potassium 3.5 mEq/L (3.5-5.1); Sodium Level 136 mEq/L (136-145)
[2024-11-08] MEDS ORDERED: CEFTRIAXONE 1000 MG/VIAL ONE (00:48)
[2024-11-08 00:49] LABS: AST/SGOT < 10 U/L (15-37)
[2024-11-08] MEDS ORDERED: ONDANSETRON 4 MG/2 ML VIAL ONE (00:49)
[2024-11-08] MEDS ORDERED: FENTANYL CITR 100 MCG/2 ML ONE ×2 (00:49→01:59)
[2024-11-08] MEDS ORDERED: NA CHLORIDE 0.9% 500 ML ONE (00:51)
[2024-11-08] MEDS ORDERED: NA CHLORIDE 0.9% 2,000 ML ONE (00:52)
[2024-11-08] MEDS ORDERED: Levofloxacin500mg IV 500 MG/100 ML BAG IV ONE (02:06)
--- NOTE | 2024-11-08 02:34 | RAD REPORT ---
EXAM: CT Abdomen and Pelvis With Intravenous Contrast CLINICAL HISTORY: The patient is 28 years old and is Female; Abd pain;Flank pain TECHNIQUE: Axial computed tomography images of the abdomen and pelvis with intravenous contrast. Sagittal an d coronal reformatted images were created and reviewed. This CT exam was performed using one or more of the following dose reduction techniques: automated exposure control, adjustment of the mA a nd/or kV according to patient size, and/or use of iterative reconstruction technique. COMPARISON: CT of the abdomen and pelvis November 06, 2022 FINDINGS: LUNG BASES: Unremarkable. No mass. No consolidation. ABDOMEN: LIVER: The liver is enlarged and fatty. GALLBLADDER AND BILE DUCTS: The gallbladder is minimally distended. No calcified gallstones or du ctal dilatation is seen. PANCREAS: No ductal dilation. No mass. SPLEEN: A few splenic granuloma are present. The spleen is homogeneous. ADRENALS: Unremarkable. No mass. KIDNEYS AND URETERS: Unremarkable. The kidneys enhance symmetrically. No obstructing renal or ure teral calculus is seen. No hydronephrosis or hydroureter. No perinephric fluid or stranding. STOMACH AND BOWEL: The stomach is minimally distended with fluid and air. The small bowel is norm al in caliber. Stool is present throughout the colon. There is no mucosal thickening or evidence of obstruction. PELVIS: APPENDIX: The appendix is normal in caliber without surrounding inflammation. BLADDER: Punctate foci of air present within the bladder which may be secondary to recent instrum entation. The bladder is well distended. Mild bladder wall inflammation is present. REPRODUCTIVE: Unremarkable as visualized. ABDOMEN and PELVIS: INTRAPERITONEAL SPACE: Trace free fluid is present within the pelvis which is likely physiologic. No free air. BONES/JOINTS: No acute fracture. SOFT TISSUES: The soft tissues are normal. VASCULATURE: Unremarkable. No abdominal aortic aneurysm. LYMPH NODES: Unremarkable. No enlarged lymph nodes. IMPRESSION: Minimal inflammation along the dome of the bladder which may be secondary to cystitis. Electronically signed by: Iwona Irwin MD 11/08/2024 02:30 AM [facility] Due to temporary technical issues with the PACS/[employer] reporting system, reports are being jia d by the in-house radiologist without review as a courtesy to ensure prompt reporting the interpreting radiologist is fully responsible for the content of the report. Transcribed Date/Time: 11/08/2024 2:34 AM
--- NOTE | 2024-11-08 02:39 | RAD REPORT ---
EXAM DESCRIPTION: Abdomen Exam Limited RadLex: US ABDOMEN LIMITED CLINICAL HISTORY: 28 years Female, ABD PAIN COMPARISON: CT abdomen pelvis 11/08/2024 FINDINGS: Limited abdominal ultrasound was performed to assess the gallbladder. No shadowing gallstones identif ied. Gallbladder wall measures up to 0.2 cm in thickness. No adjacent fluid collection. Reportedly negative sonographic Rojas sign. IMPRESSION: No sonographic abnormality of the gallbladder. Electronically signed by: Amira Mejía MD 11/08/2024 02:35 AM [facility] Due to temporary technical issues with the PACS/[employer] scribe reporting system, reports are being sign ed by the in-house radiologist without review as a courtesy to ensure prompt reporting the interpreting rad iologist is fully responsible for the content of the report. Transcribed Date/Time: 11/08/2024 2:38 AM
--- NOTE | 2024-11-08 02:57 | ER ---
Nurse's Notes [facility] Name: Marycarmen Koch Age: 28 yrs Sex: Female : 1995 Arrival Date: 11/07/2024 Time: 23:40 Bed 19 Private MD: Diagnosis: UTI/ Urinary tract infection, site not specified;Abdominal pain, unspecified;Acute cystitis with hematuria Presentation: 11/07 23:52 Chief complaint: Patient states: right flank pain, fever, and right upper quadrant pain.ha1 23:52 Coronavirus screen: Client denies travel out of the [place] in the last 14 days. Ebola ha1 Screen: No symptoms or risks identified at this time. Initial Sepsis Screen: Does the patient meet any 2 criteria? No. Patient's initial sepsis screen is negative. Does the patient have a suspected source of infection? No. Patient's initial sepsis screen is negative. Risk Assessment: Do you want to hurt yourself or someone else? Patient reports no desire to harm self or others. Onset of symptoms was November 08, 2024. 23:52 Method Of Arrival: Ambulatory ha1 23:52 Acuity: ESDRAS 3 ha1 Triage Assessment: 23:52 General: Appears uncomfortable, Behavior is calm, cooperative. Pain: Complains of pain ha1 in right upper quadrant and right lower quadrant Pain radiates to posterior aspect of right lateral abdomen Pain currently is 7 out of 10 on a pain scale. Quality of pain is described as aching, pressure. Neuro: Level of Consciousness is awake, alert, obeys commands, Oriented to person, place, time, situation. Cardiovascular: Capillary refill < 3 seconds Patient's skin is warm and dry. Respiratory: Airway is patent Respiratory effort is even, unlabored, Respiratory pattern is regular, symmetrical. GI: Abdomen is round non-distended, Reports upper abdominal pain. : No signs and/or symptoms were reported regarding the genitourinary system. Urine is clear. Derm: Skin is pink, warm \T\ dry. Musculoskeletal: Circulation, motion, and sensation intact. Range of motion: intact in all extremities. 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 - Infectious Disease History:: Denies. - Social history:: Smoking status: Patient denies any tobacco usage or history of. - Family history:: not pertinent. Screenin/24 23:52 [facility] ED Fall Risk Assessment (Adult) History of falling in the last 3 months, ha1 including since admission No falls in past 3 months (0 pts) Confusion or Disorientation No (0 pts) Intoxicated or Sedated No (0 pts) Impaired Gait No (0 pts) Mobility Assist Device Used No (0 pt) Altered Elimination No (0 pt) Score/Fall Risk Level 0 - 2 = Low Risk Oriented to surroundings, Maintained a safe environment, Educated pt \T\ family on fall prevention, incl call for assistance when getting out of bed, Hourly rounding (assess needs \T\ fall precautionary measures) done. Abuse screen: Denies threats or abuse. Denies injuries from another. Nutritional screening: No deficits noted. Tuberculosis screening: No symptoms or risk factors identified. Assessment: 11/08 00:30 General: Appears in no apparent distress. uncomfortable, Behavior is calm, cooperative, dd2 appropriate for age. Pain: Complains of pain in right low back and right upper quadrant and anterior aspect of right lateral abdomen and posterior aspect of right lateral abdomen Pain does not radiate. Pain currently is 10 out of 10 on a pain scale. Neuro: Fay Agitation-Sedation Scale (RASS): 0 - Alert and Calm Level of Consciousness is awake, alert, obeys commands, Oriented to person, place, time, situation, Appropriate for age. Cardiovascular: No deficits noted. Patient's skin is warm and dry. Respiratory: No deficits noted. Airway is patent Respiratory effort is even, unlabored, Respiratory pattern is regular, symmetrical. GI: Bowel sounds present X 4 quads. Abdomen is tender to palpation in right lower quadrant and anterior aspect of right lateral abdomen Reports lower abdominal pain, nausea. : Reports pain in right flank(s), lower quadrant(s) in lower back. EENT: No deficits noted. No signs and/or symptoms were reported regarding the EENT system. Derm: No deficits noted. No signs and/or symptoms reported regarding the dermatologic system. Musculoskeletal: No deficits noted. No signs and/or symptoms reported regarding the musculoskeletal system. Circulation, motion, and sensation intact. Range of motion: intact in all extremities. Vital Signs: 11/07 23:52 BP 106 / 76; Pulse 78; Resp 19 S; Temp 98.8(O); Pulse Ox 99% on R/A; Weight 72.57 kg; ha1 Height 5 ft. 3 in. ; 11/08 00:30 BP 106 / 78; Pulse 86; Resp 16; Pulse Ox 99% on R/A; dd2 01:30 BP 112 / 75; Pulse 77; Resp 15; Pulse Ox 100% on R/A; dd2 02:00 BP 115 / 74; Pulse 82; Resp 16; Pulse Ox 100% on R/A; dd2 03:26 BP 113 / 71; Pulse 79; Resp 16; Temp 98.4; Pulse Ox 100% ; Pain 2/10; dd2 11/07 23:52 Body Mass Index 28.34 (72.57 kg, 160.02 cm) ha1 03:26 Pain Scale: Adult dd2 [place] Coma Score: 00:30 Eye Response: spontaneous(4). Motor Response: obeys commands(6). Verbal Response: dd2 oriented(5). Total: 15. ED Course: 11/07 23:41 Patient arrived in ED. am2 23:49 Melchor Delgado MD is Attending Physician. bethanie 23:52 Patient has correct armband on for positive identification. Bed in low position. Call ha1 light in reach. Side rails up X 1. Adult w/ patient. 23:53 CHELY SOLO, KARTHIKEYAN is Primary Nurse. dd2 11/08 00:13 Initial lab(s) drawn, by me, sent to lab. First set of blood cultures drawn by ED staff.dd2 00:19 Inserted saline lock: 20 gauge in right antecubital area, using aseptic technique. mm11 Blood collected. Flushed with 10 mL NS. 00:20 Blood Culture Adult (2) Sent. mm11 00:20 Lactate w/ 2H reflex if indic. Sent. mm11 00:20 PREGU Sent. mm11 00:20 Urinalysis w/ reflexes Sent. mm11 00:20 Comprehensive Metabolic Panel Sent. mm11 00:20 CBC with Diff Sent. mm11 00:20 Lipase Sent. mm11 00:30 No provider procedures requiring assistance completed. Patient maintains SpO2 dd2 saturation greater than 95% on room air. 00:30 Client placed on continuous cardiac and pulse oximetry monitoring. NIBP monitoring dd2 applied. Door closed. Noise minimized. Warm blanket given. Pillow given. Verbal reassurance given. 00:31 Urine collected: clean catch specimen, cloudy. dd2 00:36 Triage completed. ha1 00:59 Chest Single View XRAY In Process Unspecified. EDMS 01:09 US Abdomen Limited In Process Unspecified. EDMS 01:49 CT Abd/Pelvis - IV Contrast Only In Process Unspecified. EDMS 02:56 Jam Erickson, is Referral Physician. bethanie 03:26 IV discontinued, intact, bleeding controlled, No redness/swelling at site. Pressure dd2 dressing applied. 03:26 Provided Education on: D/C EDUCATION. dd2 Administered Medications: 01:17 Drug: NS 0.9% IV (30 ml/kg) 30 ml/kg IV at bolus once; Sepsis Protocol; to be given as dd2 a bolus over 90 minutes Route: IV; Rate: bolus; Site: right antecubital; 01:32 Follow up: Response: No adverse reaction dd2 02:47 Follow up: IV Status: Completed infusion; IV Intake: 2200ml dd2 01:17 Drug: Rocephin IV 1 grams IV at per protocol once; Given slow IV push per pharmacy dd2 instructions Route: IV; Rate: per protocol; Site: right antecubital; 01:32 Follow up: Response: No adverse reaction; IV Status: Completed infusion; IV Intake: 11hrzr3 01:17 Drug: fentaNYL (PF) IVP 25 mcg IVP once Route: IVP; Site: right antecubital; dd2 01:32 Follow up: Response: No adverse reaction dd2 01:17 Drug: Ondansetron IVP 4 mg IVP once; over 2 minutes Route: IVP; Site: right antecubital;dd2 01:32 Follow up: Response: No adverse reaction dd2 02:08 Drug: fentaNYL (PF) IVP 25 mcg IVP once Route: IVP; Site: right antecubital; dd2 02:23 Follow up: Response: No adverse reaction dd2 02:18 Drug: levofloxacin IVPB 500 mg 100 ml IVPB once over 60 mins Volume: 100 ml; Route: dd2 IVPB; Infused Over: 60 mins; Site: right antecubital; 03:18 Follow up: IV Status: Completed infusion; IV Intake: 100ml dd2 03:25 Drug: Trimethoprim-Sulfamethoxazole PO (160 mg-800 mg (DS) 1 tablet PO once Route: PO; dd2 03:28 Follow up: Response: Medication administered at discharge. dd2 03:25 Drug: Phenazopyridine PO 200 mg PO once Route: PO; dd2 03:28 Follow up: Response: Medication administered at discharge. dd2 Medication: 00:30 VIS not applicable for this client. dd2 Intake: 01:32 IV: 10ml; Total: 10ml. dd2 02:47 IV: 2200ml; Total: 2210ml. dd2 03:18 IV: 100ml; Total: 2310ml. dd2 Outcome: 02:56 Discharge ordered by . bethanie 03:26 Discharged to home ambulatory, dd2 03:26 Condition: stable 03:26 Discharge instructions given to patient, Instructed on discharge instructions, follow up and referral plans. medication usage, Demonstrated understanding of instructions, follow-up care, medications, Prescriptions given X 3, 03:28 Patient left the ED. dd2 Addendum: 11/11/2024 08:09 Addendum: Culture Results: Positive urine culture. No further action required. Bacteria s s sensitive to prescribed antibiotic. Signatures: Dispatcher [employer] EDMS Melchor Delgado MD MD cha Blanchard, Shelby, RN RN ss Moreno, Amanda amLola Briones RN RN ha1 CHELY SOLO RN RN dd2 dom riggs mm11
--- NOTE | 2024-11-08 02:57 | EDPHYS ---
Physician Documentation [facility] Name: Marycarmen Koch Age: 28 yrs Sex: Female : 1995 Arrival Date: 11/07/2024 Time: 23:40 Bed 19 Private MD: ED Physician Melchor Delgado HPI: 11/08 00:34 This 28 yrs old Female presents to ER via Unassigned with complaints of Fever, bethanie Abdominal Pain, Flank Pain, Back Pain. 00:34 The patient reports fever, that was measured at 101 degrees Fahrenheit. Onset: The bethanie symptoms/episode began/occurred 2 day(s) ago. Modifying factors: there are no obvious modifying factors. Associated signs and symptoms: Pertinent positives: abdominal pain, backache, nausea. Severity of symptoms: At their worst the symptoms were moderate in the emergency department the symptoms are unchanged. The patient has not experienced similar symptoms in the past. 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 - Infectious Disease History:: Denies. - Social history:: Smoking status: Patient denies any tobacco usage or history of. - Family history:: not pertinent. ROS: 00:37 Constitutional: Negative for fever, chills, and weight loss, Eyes: Negative for injury, bethanie pain, redness, and discharge, ENT: Negative for injury, pain, and discharge, Neck: Negative for injury, pain, and swelling, Cardiovascular: Negative for chest pain, palpitations, and edema, Respiratory: Negative for shortness of breath, cough, wheezing, and pleuritic chest pain, Back: Negative for injury and pain, : Negative for injury, bleeding, discharge, and swelling, MS/Extremity: Negative for injury and deformity, Skin: Negative for injury, rash, and discoloration, Neuro: Negative for headache, weakness, numbness, tingling, and seizure, Psych: Negative for depression, anxiety, suicide ideation, homicidal ideation, and hallucinations, Allergy/Immunology: Negative for hives, rash, and allergies, Endocrine: Negative for neck swelling, polydipsia, polyuria, polyphagia, and marked weight changes, Hematologic/Lymphatic: Negative for swollen nodes, abnormal bleeding, and unusual bruising, 00:37 Abdomen/GI: Positive for abdominal pain, nausea, of the posterior aspect of right lateral abdomen, anterior aspect of right lateral abdomen and right lower quadrant, Exam: 00:37 Constitutional: This is a well developed, well nourished patient who is awake, alert, bethanie and in no acute distress. Head/Face: Normocephalic, atraumatic. Eyes: Pupils equal round and reactive to light, extra-ocular motions intact. Lids and lashes normal. Conjunctiva and sclera are non-icteric and not injected. Cornea within normal limits. Periorbital areas with no swelling, redness, or edema. ENT: Nares patent. No nasal discharge, no septal abnormalities noted. Tympanic membranes are normal and external auditory canals are clear. Oropharynx with no redness, swelling, or masses, exudates, or evidence of obstruction, uvula midline. Mucous membranes moist. Neck: Trachea midline, no thyromegaly or masses palpated, and no cervical lymphadenopathy. Supple, full range of motion without nuchal rigidity, or vertebral point tenderness. No Meningismus. Chest/axilla: Normal chest wall appearance and motion. Nontender with no deformity. No lesions are appreciated. Cardiovascular: Regular rate and rhythm with a normal S1 and S2. No gallops, murmurs, or rubs. Normal PMI, no JVD. No pulse deficits. Respiratory: Lungs have equal breath sounds bilaterally, clear to auscultation and percussion. No rales, rhonchi or wheezes noted. No increased work of breathing, no retractions or nasal flaring. Skin: Warm, dry with normal turgor. Normal color with no rashes, no lesions, and no evidence of cellulitis. MS/ Extremity: Pulses equal, no cyanosis. Neurovascular intact. Full, normal range of motion., bilateral aka Neuro: Awake and alert, GCS 15, oriented to person, place, time, and situation. Cranial nerves II-XII grossly intact. Motor strength 5/5 in all extremities. Sensory grossly intact. Cerebellar exam normal. Normal gait. Psych: Awake, alert, with orientation to person, place and time. Behavior, mood, and affect are within normal limits. 00:37 Abdomen/GI: Inspection: distension, that is mild, Bowel sounds: normal, Palpation: moderate abdominal tenderness, in the posterior aspect of right lateral abdomen, anterior aspect of right lateral abdomen and right lower quadrant, Vital Signs: 11/07 23:52 BP 106 / 76; Pulse 78; Resp 19 S; Temp 98.8(O); Pulse Ox 99% on R/A; Weight 72.57 kg; ha1 Height 5 ft. 3 in. ; 11/08 00:30 BP 106 / 78; Pulse 86; Resp 16; Pulse Ox 99% on R/A; dd2 01:30 BP 112 / 75; Pulse 77; Resp 15; Pulse Ox 100% on R/A; dd2 02:00 BP 115 / 74; Pulse 82; Resp 16; Pulse Ox 100% on R/A; dd2 03:26 BP 113 / 71; Pulse 79; Resp 16; Temp 98.4; Pulse Ox 100% ; Pain 2/10; dd2 11/07 23:52 Body Mass Index 28.34 (72.57 kg, 160.02 cm) ha1 03:26 Pain Scale: Adult dd2 [place] Coma Score: 00:30 Eye Response: spontaneous(4). Motor Response: obeys commands(6). Verbal Response: dd2 oriented(5). Total: 15. MDM: 11/07 23:49 Medical Screening Exam initiated bethanie 11/08 00:44 Differential diagnosis: nephrolithiasis, pyelonephritis, UTI, diverticulitis, bethanie pancreatitis, Nonspecific abd pain, cholecystitis, pancreatitis, appendicitis, diverticulitis, viral Infection, bacterial infection, URI, pneumonia. Data reviewed: vital signs, nurses notes, lab test result(s), EKG, radiologic studies, CT scan, plain films, ultrasound. Consideration of Admission/Observation Escalation of care including admission/observation considered. I considered the following discharge prescriptions or medication management in the emergency department Medications were administered in the Emergency Department. See MAR. Independent interpretation of the following test(s) in the Emergency Department CT Scan: My interpretation is ct abd/ pel. Test considered but Not performed: MRI: no mrcp. Historians other than the Patient: Spouse/Significant Other: well informed. pt well informed. Care significantly affected by the following chronic conditions: none. Counseling: I had a detailed discussion with the patient and/or guardian regarding the historical points, exam findings, and any diagnostic results supporting the discharge/admit diagnosis, lab results, radiology results. 11/07 23:52 Order name: CBC with Diff; Complete Time: [facility] 11/07 23:52 Order name: Comprehensive Metabolic Panel; Complete Time: : [facility] 11/07 23:52 Order name: Urinalysis w/ reflexes; Complete Time: [facility] 11/07 23:52 Order name: PREGU; Complete Time: [facility] 11/07 23:52 Order name: Blood Culture Adult (2) [facility] 11/07 23:52 Order name: Lactate w/ 2H reflex if indic.; Complete Time: [facility] 11/07 23:52 Order name: Lipase; Complete Time: [facility] 11/08 00:48 Order name: Urine Culture EDMS 11/07 23:52 Order name: CT Abd/Pelvis - IV Contrast Only [facility] 11/08 00:34 Order name: US Abdomen Limited [facility] 11/08 00:36 Order name: Chest Single View XRAY [facility] Administered Medications: 01:17 Drug: NS 0.9% IV (30 ml/kg) 30 ml/kg IV at bolus once; Sepsis Protocol; to be given as dd2 a bolus over 90 minutes Route: IV; Rate: bolus; Site: right antecubital; 32 Follow up: Response: No adverse reaction dd2 02:47 Follow up: IV Status: Completed infusion; IV Intake: 2200ml dd2 01:17 Drug: Rocephin IV 1 grams IV at per protocol once; Given slow IV push per pharmacy dd2 instructions Route: IV; Rate: per protocol; Site: right antecubital; :32 Follow up: Response: No adverse reaction; IV Status: Completed infusion; IV Intake: [id number] 01:17 Drug: fentaNYL (PF) IVP 25 mcg IVP once Route: IVP; Site: right antecubital; dd2 :32 Follow up: Response: No adverse reaction dd2 01:17 Drug: Ondansetron IVP 4 mg IVP once; over 2 minutes Route: IVP; Site: right antecubital;dd2 :32 Follow up: Response: No adverse reaction dd2 02:08 Drug: fentaNYL (PF) IVP 25 mcg IVP once Route: IVP; Site: right antecubital; dd2 02:23 Follow up: Response: No adverse reaction dd2 02:18 Drug: levofloxacin IVPB 500 mg 100 ml IVPB once over 60 mins Volume: 100 ml; Route: dd2 IVPB; Infused Over: 60 mins; Site: right antecubital; 03:18 Follow up: IV Status: Completed infusion; IV Intake: 100ml dd2 03:25 Drug: Trimethoprim-Sulfamethoxazole PO (160 mg-800 mg (DS) 1 tablet PO once Route: PO; dd2 03:28 Follow up: Response: Medication administered at discharge. dd2 03:25 Drug: Phenazopyridine PO 200 mg PO once Route: PO; dd2 03:28 Follow up: Response: Medication administered at discharge. dd2 Disposition Summary: 11/08/24 02:56 Discharge Ordered Notes: Location: Home bethanie Problem: new bethanie Symptoms: have improved bethanie Condition: Stable bethanie Diagnosis - UTI/ Urinary tract infection, site not specified bethanie - Abdominal pain, unspecified bethanie - Acute cystitis with hematuria bethanie Followup: bethanie - With: Private Physician - When: 2 - 3 days - Reason: Recheck today's complaints, Continuance of care, Re-evaluation by your physician Followup: bethanie - With: Jam Erickson DO - When: 2 - 3 days - Reason: Recheck today's complaints, Re-evaluation by your physician Discharge Instructions: - Discharge Summary Sheet bethanie - Abdominal Pain, Adult bethanie - Dysuria bethanie - Urinary Tract Infection, Adult bethanie - Urinary Tract Infection, Adult, [id number] [facility] Forms: - Medication Reconciliation Form [facility] - Antibiotic Education bethanie - Prescription Opioid Use bethanie - Patient Portal Instructions [facility] - Leadership Thank You Letter [facility] Prescriptions: - Pyridium 200 mg Oral tablet - take 1 tablet ORAL route every 8 hours for 3 days; 6 tablet; Refills: 0, [facility] Product Selection Permitted - Bactrim DS 800-160 mg Oral tablet - take 1 tablet ORAL route every 12 hours for 5 days; 10 tablet; Refills: 0, [facility] Product Selection Permitted - levofloxacin 500 mg Oral tablet - take 1 tablet ORAL route once daily for 8 days; 8 tablet; Refills: 0, Product [facility] Selection Permitted Signatures: Dispatcher [employer] Melchor Sullivan MD MD cha Ayala, Heidy, RN RN JESSICA LyleNA, RN RN dd2 Corrections: (The following items were deleted from the chart) 11/07 23:53 23:53 CBC+H.LAB.BRZ ordered. EDMS EDMS 23:53 23:53 COMPREHENSIVE METABOLIC PANEL+C.LAB.BRZ ordered. EDMS EDMS 23:53 23:53 Urinalysis+U.LAB.BRZ ordered. EDMS EDMS 23:53 23:53 Test, Urine+UC.LAB.BRZ ordered. EDMS EDMS 23:53 23:53 BLOOD CULTURE*+BA.LAB.BRZ ordered. EDMS EDMS 23:53 23:53 LACTATE+C.LAB.BRZ ordered. EDMS EDMS 23:53 23:53 LIPASE+C.LAB.BRZ ordered. EDMS EDMS 23:53 23:53 Abdomen Pelvis W Con+CT.RAD.BRZ ordered. EDMS EDMS
--- NOTE | 2024-11-08 03:06 | RAD REPORT ---
EXAM: XR Chest, 1 View CLINICAL HISTORY: The patient is 28 years old and is Female; Abdominal distention;Fever TECHNIQUE: Frontal view of the chest. COMPARISON: No relevant prior studies available. FINDINGS: LUNGS: Unremarkable. No consolidation. PLEURAL SPACE: Unremarkable. No pneumothorax. HEART: Unremarkable. No cardiomegaly. MEDIASTINUM: Unremarkable. Normal mediastinal contour. BONES/JOINTS: Unremarkable. No acute fracture. UPPER ABDOMEN: Unremarkable as visualized. IMPRESSION: No acute cardiopulmonary process. Electronically signed by: Iwona Irwin MD 11/08/2024 02:27 AM [facility] Due to temporary technical issues with the [employer] reporting system, reports are being jia d by the in-house radiologist without review as a courtesy to ensure prompt reporting the interpreting radiologist is fully responsible for the content of the report. Transcribed Date/Time: 11/08/2024 3:05 AM
[2024-11-08] MEDS ORDERED: SMZ./TMP. 800/160 MG TABLET ONE (03:23)
[2024-11-08] MEDS ORDERED: PHENAZOPYRIDINE 100MG TAB PO ONE (03:23)
[2024-11-08 06:24] VITALS: O2SAT 100
[2024-11-08 06:27] VITALS: BP 113/71; TEMP 98.4
== END 2024-11-08 03:28 | disposition home or self-care (01) ==
LOC: ER 23:40
DX: N30.01 Acute cystitis with hematuria (principal); R10.9 Unspecified abdominal pain
CPT/HCPCS: 36415; 71045; 74177; 76705; 80053; 81001; 81025; 83605; 83690; 85025; 87040; 87077; 87086; 87088; 87186; 96365; 96375; 99284; J0696; J2405; J3010; J7030; J7040; Q9967

== ENCOUNTER 2025-06-08 14:32 | Inpatient (IN) | payer SELFPAY ==
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
[2025-06-08] MEDS ORDERED: NA CHLORIDE 0.9% 1,000 ML ONE (14:45)
[2025-06-08 15:18] LABS: Absolute Lymphocytes (CBC) 1.7 K/uL (0.7-4.9); Hematocrit 39.8 % (36.0-45.0); Hemoglobin 13.5 g/dL (12.0-15.0); MCH 31.6 pg (27.0-35.0); MCHC 34.0 g/dL (32.0-36.0); MCV 93.1 fL (80-100); MPV 7.7 fL (7.6-11.3); Nucleated RBC Absolute Count 0.0 (0-0); Nucleated Red Blood Cells % 0.0 % (0-0); RBC Red Blood Cell Count 4.28 M/uL (3.86-4.86); White Blood Count 11.50 thou/uL (4.3-10.9)
[2025-06-08 15:49] LABS: ALT/SGPT 18 U/L (13-56); Albumin 3.9 g/dL (3.4-5.0); Albumin/Globulin Ratio 0.9 (1.1-1.8); Alkaline Phosphatase 85 U/L (45-117); Anion Gap 13.5 mEq/L (5.0-15.0); BUN Blood Urea Nitrogen 15 mg/dL (7-18); Globulin 4.3 g/dL (2.3-3.5); Glucose Level 88 mg/dL (74-106); Lipase 23 U/L (13-75); Potassium 3.5 mEq/L (3.5-5.1)
[2025-06-08 15:59] LABS: AST/SGOT < 10 U/L (15-37)
--- NOTE | 2025-06-08 18:07 | RAD REPORT ---
EXAMINATION: CT Abdomen Pelvis W Contrast CLINICAL INDICATION: Female, 29 years old. ABD PAIN TECHNIQUE: CT abdomen and pelvis was performed, after the administration of IV contrast, [facility]. Axial, sagittal and coronal reconstructions were obtained. One or more of the following dose reduction techniques were used: Automated exposure control, adjustment of the mA and k V according to patient size, and iterative reconstruction. Unless otherwise specified, incidental findings do not require dedicated imaging follow-up. COMPARISON: 11/08/2024 FINDINGS: LOWER CHEST: The visualized lung bases are clear. LIVER: Normal in size and contour. No focal lesion. BILIARY SYSTEM: No suspicious abnormalities. SPLEEN: Normal size. No focal lesion. PANCREAS: No mass, ductal dilation, or reuben-pancreatic fluid. ADRENALS: Normal; no mass. KIDNEYS: Normal size and contour. No hydronephrosis. URINARY BLADDER: Unremarkable. GASTROINTESTINAL TRACT: No evidence of free air, significant intra-abdominal free fluid, bowel obstru ction or abscess. Perirectal fat stranding and mild presacral edema, progressive since prior exam. APPENDIX: Normal appendix. LYMPH NODES: No lymphadenopathy. MUSCULOSKELETAL: No acute or suspicious osseous abnormality. ADDITIONAL FINDINGS: None. IMPRESSION: Perirectal fat stranding and mild presacral edema, progressive since prior exam, concerning for infec tious or inflammatory proctitis, could be stercoral related, although stool burden within the rectum is mild.
[2025-06-08] MEDS ORDERED: CIPROFLOXACIN 400mg IV 400 MG/200 ML BAG IV ONE (18:39)
[2025-06-08] MEDS ORDERED: METRONIDAZOLE 500mg IVPB 500 MG/100 ML BAG IV ONE (18:39)
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
[2025-06-08] MEDS ORDERED: ACETAMINOPHEN 325 MG TABLET PO PRN (19:07)
[2025-06-08] MEDS ORDERED: ONDANSETRON 4 MG/2 ML VIAL IV PRN (19:07)
--- NOTE | 2025-06-08 19:07 | P.HP ---
Certification for Inpatient Patient admitted to: Inpatient With expected LOS: >2 Midnights Practitioner: I am a practitioner with admitting privileges, knowledge of patient current condition, hospital course, and medical plan of care. Services: Services provided to patient in accordance with Admission requirements found in Title 42 Section 412.3 of the Code of Federal Regulations Patient History Date of Service: 06/09/25 Reason for admission: Abdominal Pain History of Present Illness: 29 yrs old Female with past medical history of fibroids who was brought to ER with constipation and rectal pain. Patient complains of constipation for the last 5 days. Has been trying stool softeners and enema suppository as well without much effect. She had a previous history of impaction. Feels the same way as this time. Denies any fever or chills. No chest pain or shortness of breath. No nausea vomiting or diarrhea. Patient was assessed in the ER and admitted for further management of stercoral proctitis Allergies No Known Allergies Allergy (Verified 06/08/25 22:56) Home medications list reviewed: Yes Home Medications: NK [No Home Meds] 06/08/25 - Past Medical/Surgical History Diabetic: No Past Medical History: Reviewed- Non-Contributory Past Surgical History: Reviewed- Non-Contributory - Family History Family History: Reviewed- Non-Contributory - Social History Smoking Status: Never smoker Alcohol use: No CD- Drugs: No Caffeine use: Yes Review of Systems 10-point ROS is otherwise unremarkable Physical Examination - Vital Signs Temperature: 98.3 F Blood Pressure: 109/68 Pulse: 68 Respirations: 18 Pulse Ox (%): 94 - Physical Exam General: Alert, In no apparent distress, Oriented x3 HEENT: Atraumatic, Normocephalic Neck: Supple, No Thyromegaly Respiratory: Clear to auscultation bilaterally, Normal air movement Cardiovascular: Regular rate/rhythm, Normal S1 S2 Capillary refill: <2 Seconds Gastrointestinal: Soft and benign, W/out hepatosplenomegaly, Tenderness Musculoskeletal: No clubbing Integumentary: No rashes, No tenderness/swelling Neurological: Other (Alert, Awake,Nonfocal ) Lymphatics: No axilla or inguinal lymphadenopathy - Studies Laboratory Data (last 24 hrs) 06/08/25 06/08/25 14:58 14:58 WBC 11.50 H Hgb 13.5 Hct 39.8 Plt Count 340 Sodium 136 Potassium 3.5 BUN 15 Creatinine 0.93 Glucose 88 Total Bilirubin 0.7 AST < 10 L ALT 18 Alkaline Phosphatase 85 Lipase 23 Assessment and Plan - Plan Proctitis Stercoral proctitis Pain Control Started on suppositories CT Findings noted Surgical Consult GI/DVT prophylaxis Advanced directive full code Discharge Plan: Home Plan to discharge in: 48 Hours - Advance Directives Does patient have a Living Will: No Does patient have a Durable POA for Healthcare: No - Code Status/Comfort Care Code Status: Full Code Time Spent Managing Pts Care (In Minutes): 48
[2025-06-08] MEDS: NA CHLORIDE 0.9% 1,000 ML IV SCH (21:21)
[2025-06-08 23:22] VITALS: BMI 28.5
[2025-06-09] MEDS: METRONIDAZOLE 500mg IVPB 500 MG/100 ML BAG IV SCH (00:50)
[2025-06-09 01:01] VITALS: O2SAT 99
[2025-06-09 01:52] LABS: Sqamous Epithelial 20-50 /HPF (None Seen); Urine Culture Reflex Order REFLEXED; Urine Microscopic Reflex YN ORDER UMIC
[2025-06-09] MEDS: BISACODYL 10 MG RECTAL SUPP PR ONE (04:43)
[2025-06-09 05:01] LABS: Absolute Lymphocytes (CBC) 2.1 K/uL (0.7-4.9); Hematocrit 33.5 % (36.0-45.0); Hemoglobin 11.6 g/dL (12.0-15.0); MCH 32.4 pg (27.0-35.0); MCHC 34.7 g/dL (32.0-36.0); MCV 93.6 fL (80-100); MPV 7.3 fL (7.6-11.3); Nucleated RBC Absolute Count 0.0 (0-0); Nucleated Red Blood Cells % 0.2 % (0-0); RBC Red Blood Cell Count 3.58 M/uL (3.86-4.86); White Blood Count 7.10 thou/uL (4.3-10.9)
[2025-06-09 05:23] LABS: AST/SGOT 11 U/L (15-37); Albumin 3.1 g/dL (3.4-5.0); Albumin/Globulin Ratio 0.9 (1.1-1.8); Alkaline Phosphatase 58 U/L (45-117); Anion Gap 8.6 mEq/L (5.0-15.0); BUN Blood Urea Nitrogen 9 mg/dL (7-18); Globulin 3.4 g/dL (2.3-3.5); Glucose Level 88 mg/dL (74-106); Potassium 3.6 mEq/L (3.5-5.1)
[2025-06-09 05:32] LABS: ALT/SGPT < 14 U/L (13-56)
[2025-06-09] MEDS: KCL 20 MEQ/100 mL IVPB 20 MEQ/100 ML BAG IV SCH (08:22)
[2025-06-09] MEDS: CEFTRIAXONE 1,000 MG in NA CHLORIDE 0.9% 50 ML IVPB SCH (08:23)
[2025-06-09 10:26] VITALS: BP 107/64; TEMP 98.1
--- NOTE | 2025-06-09 11:00 | CON ---
Date of Consultation: 06/09/2025 Reason For Consultation: Abdominal and rectal pain. History Of Present Illness: The patient is a 29-year-old female who presented to the emergency room last night with a 5-day history of constipation and lower abdominal pain and perianal pain. She has had a history of constipation in the past. She has tried stool softeners and suppository prior to ad mission without much results. She did have a bowel movement today, this morning, and she feels much better. No nausea or vomiting. No diarrhea. No blood per rectum. No dysuria or hematuria. No sor e throat, runny nose, cough, headaches, or dizziness. No chest pain. No fevers or chills. Review of Systems: Otherwise, unremarkable. Past Medical History: Negative. Past Surgical History: Bilateral tubal ligation. Allergies: NO ALLERGIES. Social History: The patient does not smoke or drink alcohol. Physical Examination: Vital Signs: Stable. She is afebrile. Head and Neck: No masses. Chest: Clear. Heart: S1, S2. Abdomen: Soft, nondistended, nontender. Positive bowel sounds. Extremities: Neurovascularly intact. Neuro: Nonfocal. Laboratory Data: Reviewed. White count 7.1, there is no left shift. Chemistry reviewed, essentiall y unremarkable. CT of the abdomen and pelvis reviewed, which is consistent with proctitis with perir ectal fat stranding and mild presacral edema concerning for infectious or inflammatory proctitis. Assessment: Likely, proctitis. Recommendations: The patient was counseled on high-fiber diet, Metamucil or MiraLAX, stool softener as needed. GI followup. The patient can be discharged home on oral antibiotics as the patient is cl inically doing well. /MODL Voice ID: [id number] Report ID: [id number]
--- NOTE | 2025-06-09 15:45 | P.DS ---
Admission Date: 06/08/25 Discharge Date: 06/09/25 Disposition: ROUTINE DISCHARGE Discharge Condition: GOOD Reason for Admission: Abdominal Pain Brief History of Present Illness: 29 yrs old Female with past medical history of fibroids who was brought to ER with constipation and rectal pain. Patient complains of constipation for the last 5 days. Has been trying stool softeners and enema suppository as well without much effect. She had a previous history of impaction. Feels the same way as this time. Denies any fever or chills. No chest pain or shortness of breath. No nausea vomiting or diarrhea. Patient was assessed in the ER and admitted for further management of stercoral proctitis Hospital Course: Proctitis Stercoral proctitis Patient was admitted to the hospital for constipation, rectal pain. CT of the abdomen and pelvis showed perirectal fat stranding and mild presacral edema concerning for infectious or inflammatory proctitis. Patient was started on bowel regimen and IV antibiotics, she had improvement in her symptoms after receiving a suppository this morning she had a formed soft stool and is feeling much better. White blood cell count is within normal limits she is afebrile. She was seen by general surgery who recommends continuation of oral antibiotics and high-fiber diet which was discussed. Antibiotics will be sent to [facility] in [place] Vital Signs/Physical Exam: Temp Pulse Resp BP Pulse Ox 98.1 F 80 16 107/64 100 06/09/25 08:00 06/09/25 08:00 06/09/25 08:00 06/09/25 08:00 06/09/25 08:00 General: Alert, In no apparent distress, Oriented x3 HEENT: Atraumatic, PERRLA Neck: Supple, JVD not distended Respiratory: Clear to auscultation bilaterally, Normal air movement Cardiovascular: Regular rate/rhythm, Normal S1 S2 Gastrointestinal: Normal bowel sounds, No tenderness Musculoskeletal: No tenderness Integumentary: No rashes Neurological: Normal speech Laboratory Data at Discharge: WBC 7.10 thou/uL (4.3-10.9) 06/09/25 04:53 Hgb 11.6 g/dL (12.0-15.0) L D 06/09/25 04:53 Hct 33.5 % (36.0-45.0) L 06/09/25 04:53 Plt Count 281 thou/uL (152-406) 06/09/25 04:53 Sodium 138 mEq/L (136-145) 06/09/25 04:53 Potassium 3.6 mEq/L (3.5-5.1) 06/09/25 04:53 BUN 9 mg/dL (7-18) 06/09/25 04:53 Creatinine 0.62 mg/dL (0.55-1.02) 06/09/25 04:53 Glucose 88 mg/dL (74-106) 06/09/25 04:53 Total Bilirubin 0.6 mg/dL (0.2-1.0) 06/09/25 04:53 AST 11 U/L (15-37) L 06/09/25 04:53 ALT < 14 U/L (13-56) 06/09/25 04:53 Alkaline Phosphatase 58 U/L (45-117) D 06/09/25 04:53 Lipase 23 U/L (13-75) 06/08/25 14:58 Home Medications: Ciprofloxacin HCl 500 mg PO BID #20 tab 06/09/25 metroNIDAZOLE [Flagyl] 500 mg PO Q8H #30 tab 06/09/25 New Medications: Ciprofloxacin HCl 500 mg PO BID #20 tab metroNIDAZOLE [Flagyl] 500 mg PO Q8H #30 tab Physician Discharge Instructions: Patient was admitted to the hospital for constipation, rectal pain. CT of the abdomen and pelvis showed perirectal fat stranding and mild presacral edema concerning for infectious or inflammatory proctitis. Patient was started on bowel regimen and IV antibiotics, she had improvement in her symptoms after receiving a suppository this morning she had a formed soft stool and is feeling much better. White blood cell count is within normal limits she is afebrile. She was seen by general surgery who recommends continuation of oral antibiotics and high-fiber diet which was discussed. Antibiotics will be sent to [facility] in [place] Diet: high fiber Activity: Ad yosi Followup: NONE,NONE [Primary Care Provider] - 1-2 Weeks Doron Garcia MD [ACTIVE - CAN ADMIT] - If your Symptoms Worsen Time spent managing pt's care (in minutes): 38
== END 2025-06-09 13:04 | disposition home or self-care (01) | DRG 395 ==
LOC: ER 14:32 → 2ND 19:07
PROVIDERS: ADMIT Family Medicine; ATTEND Hospitalist
DX: K62.89 Other specified diseases of anus and rectum (principal); K59.00 Constipation, unspecified
CPT/HCPCS: 36415; 74177; 80053; 81001; 83690; 84703; 85025; 87086; 87088; 96361; 96374; 96375; 99285; J0696; J0744; J3480; J7030; Q9967